=== PATIENT | male | born 1935 | race Caucasian/White ===

== ENCOUNTER 2016-08-01 13:03 | Observation (INO) | payer MEDICARE ==
[2016-08-01] MEDS ORDERED: MORPHINE SULFATE 4 MG/ML SYRINGE IV STA (14:17)
[2016-08-01] MEDS ORDERED: ASPIRIN 81 MG CHEW PO STA (14:17)
[2016-08-01] MEDS ORDERED: NITROGLYCERIN OINT 1 INCH/GM PACKET TOPICAL STA (14:17)
--- NOTE | 2016-08-01 14:20 | ED ---
General Adult HPI - General Chief complaint: Chest Pain Stated complaint: CHEST PAIN Time Seen by Provider: 08/01/16 14:04 Source: patient, family, RN notes reviewed Mode of arrival: ambulatory Limitations: no limitations - History of Present Illness Initial comments: Patient is a pleasant 81-year-old male presenting to the emergency department complaining of chest discomfort. Onset of symptoms was when he woke this morning. Patient has right lower chest discomfort. Discomfort is increased with deep breaths or no cough or fever. No shortness of breath except for the discomfort. No nausea or diaphoresis. No trauma. No history of similar symptoms previously. No leg pain or swelling. - Related Data Home Medications Medication Instructions Recorded Confirmed No Known Home Medications [No 08/01/16 08/01/16 Known Home Medications] Allergies Allergy/AdvReac Type Severity Reaction Status Date / Time No Known Allergies Allergy Verified 08/01/16 13:56 Review of Systems ROS Statement: Those systems with pertinent positive or pertinent negative responses have been documented in the HPI. ROS Other: All systems not noted in ROS Statement are negative. Constitutional: Denies: fever Eyes: Denies: eye pain ENT: Denies: ear pain Respiratory: Denies: cough Cardiovascular: Reports: chest pain (Right lower) Endocrine: Denies: fatigue Gastrointestinal: Denies: abdominal pain Genitourinary: Denies: dysuria Musculoskeletal: Denies: back pain Skin: Denies: rash Neurological: Denies: weakness Past Medical History Past Medical History: Diabetes Mellitus, Hearing Disorder / Deafness, Hyperlipidemia, Hypertension History of Any Multi-Drug Resistant Organisms: None Reported Additional Past Surgical History / Comment(s): carpal tunnel Past Psychological History: No Psychological Hx Reported Smoking Status: Former smoker Past Alcohol Use History: None Reported Past Drug Use History: None Reported General Exam Limitations: no limitations General appearance: alert, in no apparent distress Head exam: Present: atraumatic Eye exam: Present: normal appearance, PERRL ENT exam: Present: normal oropharynx Neck exam: Present: normal inspection Respiratory exam: Present: normal lung sounds bilaterally, chest wall tenderness (Right lower anterior) Cardiovascular Exam: Present: regular rate, normal rhythm Expanded Peripheral pulses: 2+: Radial (R), Radial (L), Posterior Tibialis (R), Posterior Tibialis (L) GI/Abdominal exam: Present: soft. Absent: tenderness Extremities exam: Present: normal inspection. Absent: pedal edema, calf tenderness Back exam: Present: normal inspection Neurological exam: Present: alert Psychiatric exam: Present: normal affect, normal mood Skin exam: Absent: rash Course Vital Signs 08/01/16 08/01/16 08/01/16 13:43 14:34 15:34 Temperature 97.9 F 98.0 F Pulse Rate 61 98 49 L Respiratory 18 18 18 Rate Blood Pressure 205/90 129/72 164/78 O2 Sat by Pulse 95 100 99 Oximetry 08/01/16 16:02 Temperature 97.4 F L Pulse Rate 55 L Respiratory 16 Rate Blood Pressure 184/79 O2 Sat by Pulse 99 Oximetry EKG Findings - EKG Comments: EKG Findings:: Normal sinus rhythm at 62. Normal intervals. Normal axis. Normal QRS. Normal ST-T. Medical Decision Making - Medical Decision Making Patient reevaluated and resting comfortably in bed. Patient family updated on results. Family is not comfortable with discharge and requests admission. Case discussed with Dr. Jones, who will admit for Dr. Baljeet Jimenez. Patient and family were also notified of nodules and need for follow-up with this. - Lab Data Result diagrams: 08/01/16 15:00 08/01/16 15:00 Lab Results 08/01/16 08/01/16 08/01/16 Range/Units 15:00 15:00 15:00 WBC 6.1 (3.8-10.6) k/uL RBC 4.14 L (4.30-5.90) m/uL Hgb 13.7 (13.0-17.5) gm/dL Hct 41.1 (39.0-53.0) % MCV 99.1 (80.0-100.0) fL MCH 33.0 (25.0-35.0) pg MCHC 33.3 (31.0-37.0) g/dL RDW 12.5 (11.5-15.5) % Plt Count 167 (150-450) k/uL Neutrophils % 64 % Lymphocytes % 22 % Monocytes % 7 % Eosinophils % 4 % Basophils % 1 % Neutrophils # 3.9 (1.3-7.7) k/uL Lymphocytes # 1.3 (1.0-4.8) k/uL Monocytes # 0.4 (0-1.0) k/uL Eosinophils # 0.3 (0-0.7) k/uL Basophils # 0.0 (0-0.2) k/uL PT (9.0-12.0) sec INR (<1.1) APTT (22.0-30.0) sec D-Dimer (<0.60) mg/L FEU Sodium 143 (137-145) mmol/L Potassium 4.7 (3.5-5.1) mmol/L Chloride 108 H (98-107) mmol/L Carbon Dioxide 24 (22-30) mmol/L Anion Gap 11 mmol/L BUN 26 H (9-20) mg/dL Creatinine 1.35 H (0.66-1.25) mg/dL Est GFR (MDRD) Af Amer >60 (>60 ml/min/1.73 sqM) Est GFR (MDRD) Non-Af 51 (>60 ml/min/1.73 sqM) Glucose 109 H (74-99) mg/dL Calcium 9.0 (8.4-10.2) mg/dL Magnesium 1.9 (1.6-2.3) mg/dL Total Bilirubin 0.5 (0.2-1.3) mg/dL AST 33 (17-59) U/L ALT 22 (21-72) U/L Alkaline Phosphatase 108 (38-126) U/L Total Creatine Kinase 79 (55-170) U/L CK-MB (CK-2) 1.5 (0.0-2.4) ng/mL CK-MB (CK-2) Rel Index 1.9 Troponin I <0.012 (0.000-0.034) ng/mL Total Protein 7.1 (6.3-8.2) g/dL Albumin 4.0 (3.5-5.0) g/dL 08/01/16 Range/Units 15:00 WBC (3.8-10.6) k/uL RBC (4.30-5.90) m/uL Hgb (13.0-17.5) gm/dL Hct (39.0-53.0) % MCV (80.0-100.0) fL MCH (25.0-35.0) pg MCHC (31.0-37.0) g/dL RDW (11.5-15.5) % Plt Count (150-450) k/uL Neutrophils % % Lymphocytes % % Monocytes % % Eosinophils % % Basophils % % Neutrophils # (1.3-7.7) k/uL Lymphocytes # (1.0-4.8) k/uL Monocytes # (0-1.0) k/uL Eosinophils # (0-0.7) k/uL Basophils # (0-0.2) k/uL PT 10.8 (9.0-12.0) sec INR 1.1 (<1.1) APTT 28.4 (22.0-30.0) sec D-Dimer 0.93 H (<0.60) mg/L FEU Sodium (137-145) mmol/L Potassium (3.5-5.1) mmol/L Chloride (98-107) mmol/L Carbon Dioxide (22-30) mmol/L Anion Gap mmol/L BUN (9-20) mg/dL Creatinine (0.66-1.25) mg/dL Est GFR (MDRD) Af Amer (>60 ml/min/1.73 sqM) Est GFR (MDRD) Non-Af (>60 ml/min/1.73 sqM) Glucose (74-99) mg/dL Calcium (8.4-10.2) mg/dL Magnesium (1.6-2.3) mg/dL Total Bilirubin (0.2-1.3) mg/dL AST (17-59) U/L ALT (21-72) U/L Alkaline Phosphatase (38-126) U/L Total Creatine Kinase (55-170) U/L CK-MB (CK-2) (0.0-2.4) ng/mL CK-MB (CK-2) Rel Index Troponin I (0.000-0.034) ng/mL Total Protein (6.3-8.2) g/dL Albumin (3.5-5.0) g/dL - Radiology Data Radiology results: report reviewed (Computed tomography scan of the chest shows nodules. Hazy groundglass opacity upper lobes bilateral.), image reviewed ( Chest x-ray shows questionable CHF.) Disposition Clinical Impression: Chest pain Disposition: ADMITTED IP TO THIS HOSP
--- NOTE | 2016-08-01 15:12 | XR ---
EXAMINATION TYPE: XR chest 2V DATE OF EXAM: 08/01/2016 3:06 PM COMPARISON: NONE TECHNIQUE: PA and lateral views submitted. HISTORY: Chest pain FINDINGS: The lungs are clear and there is no pneumothorax, pleural effusion, or focal pneumonia. Atheroscler otic change aorta. Arthropathy of the AC joints noted bilaterally. Hyperinflation suggests COPD. Dege nerative change of the spine. Right hilum superiorly has a convex margin could be correlated with CT scan exclude underlying mass o r adenopathy. IMPRESSION: 1. No acute infiltrate. There is mild prominence of the right hilum which has a convex upper margin. Correlate with CT scan as clinically warranted.
[2016-08-01 15:13] LABS: Basophils % (A) 1 %; CH 33.1; CHCM 33.5; Eosinophils # (A) 0.3 k/uL (0-0.7); Eosinophils % (A) 4 %; HCT 41.1 % (39.0-53.0); HDW 2.28; HGB 13.7 gm/dL (13.0-17.5); Luc % (Auto) 3; Lymphocytes # (A) 1.3 k/uL (1.0-4.8); Lymphocytes % (A) 22 %; MCHC 33.3 g/dL (31.0-37.0); MCV 99.1 fL (80.0-100.0); Mean Platelet Volume 7.4; Monocytes # (A) 0.4 k/uL (0-1.0); Monocytes % (A) 7 %; Neutrophils # (A) 3.9 k/uL (1.3-7.7); Neutrophils % (A) 64 %; RBC 4.14 m/uL (4.30-5.90); RDW 12.5 % (11.5-15.5); WBC 6.1 k/uL (3.8-10.6); WBC (Perox) 6.19
[2016-08-01 15:15] LABS: ALT 22 U/L (21-72); AST 33 U/L (17-59); Alkaline Phosphatase 108 U/L (38-126); Anion Gap 11 mmol/L; Blood Urea Nitrogen 26 mg/dL (9-20); Carbon Dioxide 24 mmol/L (22-30); Chloride 108 mmol/L (98-107); Glucose 109 mg/dL (74-99); Magnesium 1.9 mg/dL (1.6-2.3); Non-African American GFR(MDRD) 51 (>60 ml/min/1.73 sqM); Potassium 4.7 mmol/L (3.5-5.1); Sodium 143 mmol/L (137-145); Total Bilirubin 0.5 mg/dL (0.2-1.3); Total Protein 7.1 g/dL (6.3-8.2)
[2016-08-01 15:22] LABS: INR 1.1 (<1.1); Partial Thromboplastin Time 28.4 sec (22.0-30.0); Prothrombin Time 10.8 sec (9.0-12.0)
[2016-08-01] MEDS ORDERED: RX INFO: IV CONTRAST WAS GIVEN 1 EACH MISC MISCELLANE PRN (15:29)
[2016-08-01 15:32] LABS: Creatine Kinase 79 U/L (55-170)
[2016-08-01 15:45] LABS: Creatine Kinase MB 1.5 ng/mL (0.0-2.4); Troponin I <0.012 ng/mL (0.000-0.034)
--- NOTE | 2016-08-01 16:34 | CT ---
EXAMINATION TYPE: CT angio chest DATE OF EXAM: 08/01/2016 3:59 PM COMPARISON: NONE HISTORY: Mid Chest pain and Shortness of breath CT DLP: 217.2 mGycm Automated exposure control for dose reduction was used. CONTRAST: CTA scan of the thorax is performed with IV Contrast, patient injected with 80 mL of Visipaque 320, p ulmonary embolism protocol. . FINDINGS: There are emphysematous changes throughout the lungs. There is some hazy groundglass opacit y in the upper lobes bilaterally. There is an 8.6 mm nodule in the right middle lobe. Best seen on im age 75. There is a 5.7 mm nodule in the lateral basal segment of the right lower lobe best seen on im age 78. There is no significant axillary, mediastinal or hilar adenopathy. There is no evidence of pulmonary embolus. The aorta is normal in caliber. The heart is not enlarged. There is no pleural or pericardial fluid. There is colonic interposition present bilaterally. Visualized upper abdominal structures are unremar kable. There is mild hypertrophic spondylosis within the spine. IMPRESSION: 1. THIS EXAMINATION IS NEGATIVE FOR PULMONARY EMBOLUS. 2. EMPHYSEMATOUS CHANGE. 3. HAZY GROUNDGLASS OPACITY WITHIN THE UPPER LOBES BILATERALLY, MAY REPRESENT ONGOING ALVEOLITIS. 4. 2 SMALL PULMONARY NODULES ON THE RIGHT. FOLLOW UP [address] SCAN OF THE CHEST WOULD BE SUGGESTED .
[2016-08-01] MEDS ORDERED: NITROGLYCERIN SL TABS 0.4 MG TAB SUBLINGUAL PRN (17:18)
[2016-08-01] MEDS ORDERED: LISINOPRIL 20 MG TAB PO STA (17:57)
[2016-08-01 18:46] VITALS: RESP 18
[2016-08-01 21:47] LABS: Creatine Kinase 73 U/L (55-170)
[2016-08-01 22:00] LABS: Creatine Kinase MB 1.8 ng/mL (0.0-2.4); Troponin I <0.012 ng/mL (0.000-0.034)
[2016-08-01] MEDS: NITROGLYCERIN OINT 1 INCH/GM PACKET TOPICAL SCH (22:07)
[2016-08-02] MEDS: NITROGLYCERIN OINT 1 INCH/GM PACKET TOPICAL SCH ×2 (00:13→06:09)
[2016-08-02 04:14] LABS: Cholesterol 171 mg/dL (<200); HDL Cholesterol 51 mg/dL (40-60); Triglycerides 106 mg/dL (<150)
[2016-08-02 04:17] LABS: Creatine Kinase 58 U/L (55-170)
[2016-08-02 04:30] LABS: Creatine Kinase MB 1.2 ng/mL (0.0-2.4); Troponin I <0.012 ng/mL (0.000-0.034)
[2016-08-02] MEDS ORDERED: ASPIRIN 325 MG TAB PO SCH (09:00)
--- NOTE | 2016-08-02 10:01 | CONS ---
DATE OF CONSULTATION: Mr. Jules is an 81-year-old male who is followed at the [facility] in [place] who presented with a dizziness and right-sided discomfort. The history is obtained from him and his daughter. The patient is hard of hearing and has element of dementia. Apparently yesterday in the morning he felt dizzy and subsequently started to complain of right upper quadrant and right lower chest discomfort, came into the emergency room and subsequently admitted. He is pain free at the time of my evaluation. He is not very active physically. He has no significant dyspnea on exertion. He has no prior episode of dizziness, except for the last 2 weeks. He has no palpitation. No syncope. No PND, orthopnea. No peripheral edema. He had no left-sided chest discomfort. He has no prior documented history of cardiac disease or recent cardiac workup. His coronary risk factors are remarkable for the fact that he has stopped smoking many years ago. He used to have a history of diabetes, but then he lost weight. His lipid profile is not available to me and has no documented history of hypertension. His medications at home are none. REVIEW OF SYSTEMS: RESPIRATORY SYSTEM: He has no history of documented asthma or emphysema. He has no recent wheezing. GI SYSTEM: No recent GI bleed. No peptic ulcer disease. SYSTEM: No dysuria or hematuria. NERVOUS SYSTEM: No stroke or seizure. He has a of loss of memory. PHYSICAL EXAMINATION: He is an 81-year-old male, hard of hearing, was hypertensive on presentation. His blood pressure at this time is 130/70 with the heart rate in the high 50s. HEAD: Normocephalic. EYES: Sclerae anicteric. NECK: ( ) carotid upstroke. No bruit. LUNGS: Clear to auscultation. HEART: Regular rate and rhythm. S1, S2, no S3, with systolic murmur heard at the base. No diastolic murmur. No rub. ABDOMEN: Soft, right upper quadrant tenderness. No rebound. EXTREMITIES: No edema. Intact distal pulses. LAB DATA: He had an echocardiogram done in 2006 that showed no evidence of inducible ischemia. His EKG on this admission revealed sinus bradycardia, rate of 52 with rare PACs and nonspecific ST-T wave changes. His troponin is less than 0.012 for 3 samples. Cholesterol 171, LDL of 99, BUN and creatinine 26 and 1.35. Potassium 4.7. Hemoglobin of 13.7. He had a chest CT angiogram that showed no evidence of pulmonary embolism. He has emphysematous changes with hazy ground-glass opacity could be related to the alveolitis. IMPRESSION: 1. Right-sided chest discomfort, atypical for ischemic heart disease. No evidence to suggest cardiac abnormality. 2. Abnormal CT scan, etiology unclear. 3. Remote history of smoking. 4. Abnormal renal function tests of unknown duration. RECOMMENDATIONS: From the cardiac standpoint, I will obtain echocardiogram with Doppler. If there is no evidence of significant abnormality then no further cardiac workup will be needed at this point. Thank you for this consult. Will follow with you.
[2016-08-02 12:49] LABS: Hemoglobin A1C 6.3 % (4.2-6.1)
[2016-08-02 16:23] VITALS: BP 139/66; PULSE 54; TEMP 97.5
--- NOTE | 2016-08-02 17:26 | P.HPIM ---
History of Present Illness H&P Date: 08/02/16 (DC summary as well) 81-year-old gentleman comes in the hospital with right-sided chest pain 6 days. Patient stated that the pain is intermittent denies having any alleviating or exacerbating factors. Patient apparently had a history of diabetes however lost weight and does not require any medications anymore. Patient does not take any medications at home. Right-sided chest pain was intermittent in nature radiating to the right arm. In the emergency room EKG revealed a right bundle branch block without no ST-T wave changes. Cardiac enzymes 3 were negative. Patient states that his pain is relieved at the time of my evaluation. Patient denies having any difficulty breathing, chest pain, nausea, vomiting, diarrhea at that time. Incidentally CT angiogram did note some non specific changes. Patient does not have any additional symptoms at this time. Review of Systems All systems: negative (Decreased hearing another's described in HPI.) Past Medical History Past Medical History: Diabetes Mellitus, Hearing Disorder / Deafness, Hyperlipidemia, Hypertension, Memory Impairment Additional Past Medical History / Comment(s): ruptured tendons rt ring and pinky fingers(has sx), peptic ulcer 2011, "in past made mention of ra", "dizzy spells and headaches" History of Any Multi-Drug Resistant Organisms: None Reported Past Surgical History: Tonsillectomy Additional Past Surgical History / Comment(s): carpal tunnel, rt hand ring and pinky fingers tendon repair, margarito cataracts,colonoscopy, hernia repair, skin graft lt leg d/t industrial accident. Past Psychological History: No Psychological Hx Reported Additional Psychological History / Comment(s): pt's 4 years ago. pt lives with daughter yogi in home that has 4 steps into home. uses a cane or walker as needed. has 1 pet bird. Pt served in the [employer] in the past. 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 Smoking Status: Former smoker Past Alcohol Use History: None Reported Past Drug Use History: None Reported - Past Family History Father Family Medical History: Cancer Additional Family Medical History / Comment(s): colon cancer Brother(s) Family Medical History: Cancer Additional Family Medical History / Comment(s): colon cancer Mother Family Medical History: Asthma Medications and Allergies Allergies Allergy/AdvReac Type Severity Reaction Status Date / Time No Known Allergies Allergy Verified 08/01/16 13:56 Physical Exam Vitals: Vital Signs Temp Pulse Pulse Pulse Resp BP BP 08/02/16 16:00 97.5 F L 54 L 18 139/66 08/02/16 11:50 97.7 F 45 L 18 133/61 08/02/16 08:00 58 L 08/02/16 07:54 97.6 F 56 L 18 131/77 08/02/16 04:00 42 L 18 08/02/16 03:52 97.9 F 52 L 18 93/56 08/01/16 23:50 58 L 18 120/61 08/01/16 23:14 52 L 18 08/01/16 20:42 18 08/01/16 19:49 97.9 F 52 L 18 161/75 08/01/16 18:45 98.2 F 50 L 18 166/56 08/01/16 18:02 98.0 F 50 L 16 190/84 Pulse Ox 08/02/16 16:00 94 L 08/02/16 11:50 95 08/02/16 08:00 08/02/16 07:54 95 08/02/16 04:00 08/02/16 03:52 94 L 08/01/16 23:50 92 L 08/01/16 23:14 08/01/16 20:42 08/01/16 19:49 96 08/01/16 18:45 98 08/01/16 18:02 99 Intake and Output 08/02/16 08/02/16 08/02/16 06:59 14:59 22:59 Intake Total 240 Balance 240 Intake: Oral 240 Other: # Voids 1 Physical exam Gen. appearance oriented 3 in no distress Neck is supple no JVD Lungs good air entry clear to auscultation no rhonchi or wheezing Heart S1-S2 heard regular rate and rhythm no murmurs appreciated Abdomen is soft nontender no organomegaly bowel sounds are intact Neurologically cranial nerves II-12 grossly intact no focal motor or sensory deficits noted Skin no abnormalities appreciated Results CBC & Chem 7: 08/01/16 15:00 08/01/16 15:00 Labs: Abnormal Lab Results - Last 24 Hours (Table) 08/02/16 Range/Units 03:18 Hemoglobin A1c 6.3 H (4.2-6.1) % Assessment and Plan Plan: #1 right-sided chest pain atypical in nature likely musculoskeletal #2 nonspecific findings on the CT angiogram however does not have symptoms clinical observation. #3 pulmonary nodules #4 history of diabetes #5 hearing loss. #6 history of hypertension. Plan Patient was admitted for chest pain is likely muscular skeletal he was self- limiting patient will be discharged home without any additional change in medications. Patient is to follow-up with primary care physician closely. Patient underwent a CT angiogram no PE was found, echocardiogram was done to rule out wall motion abdomen is. Cardiac enzymes 3 were negative. If patient continues to have chest pain may benefit from receiving an outpatient Lexiscan.
--- NOTE | 2016-08-02 17:37 | ECHOF ---
Referral Reason:cp MEASUREMENTS -------- HEIGHT: 165.1 cm WEIGHT: 68.0 kg BP: RVIDd: 2.4 cm (< 3.3) IVSd: 0.9 cm (0.6 - 1.1) LVIDd: 3.7 cm (3.9 - 5.3) LVPWd: 1.3 cm (0.6 - 1.1) IVSs: 1.3 cm LVIDs: 3.1 cm LVPWs: 1.4 cm LA Diam: 2.9 cm (2.7 - 3.8) LAESV Index (A-L): 14.67 ml/m Ao Diam: 3.3 cm (2.0 - 3.7) AV Cusp: 2.1 cm (1.5 - 2.6) LA Diam: 2.5 cm (2.7 - 3.8) MV EXCURSION: 16.356 mm (> 18.000) MV EF SLOPE: 81 mm/s (70 - 150) EPSS: 0.6 cm MV E Kali: 0.55 m/s MV DecT: 247 ms MV A Kali: 0.85 m/s MV E/A Ratio: 0.65 RAP: 5.00 mmHg RVSP: 15.45 mmHg FINDINGS -------- Sinus rhythm. This was a technically adequate study. LV size, wall thickness and systolic function are normal, with an EF greater than 55%. The right ventricle is normal in size. Normal LA size by volume 22+/-6 ml/m2. The right atrial size is normal. There is mild aortic valve sclerosis. There is no evidence of aortic regurgitation. Mild mitral annular calcification present. Mild mitral regurgitation is present. Mild tricuspid regurgitation present. There is no evidence of pulmonary hypertension. The right ventricular systolic pressure, as measured by Doppler, is 15.45mmHg. There is no pulmonic regurgitation present. The aortic root size is normal. There is no pericardial effusion. CONCLUSIONS -------- 1. Sinus rhythm. 2. The right ventricular systolic pressure, as measured by Doppler, is 15.45mmHg. 3. There is no pulmonic regurgitation present. 4. There is no pericardial effusion. 5. This was a technically adequate study. 6. LV size, wall thickness and systolic function are normal, with an EF greater than 55%. 7. Normal LA size by volume 22+/-6 ml/m2. 8. There is mild aortic valve sclerosis. 9. Mild mitral annular calcification present. 10. Mild mitral regurgitation is present. 11. Mild tricuspid regurgitation present. 12. There is no evidence of pulmonary hypertension. PIPE LINE REPAIRER: Ruth Bonilla RDCS
== END 2016-08-02 18:15 | disposition home or self-care (01) ==
LOC: EC 13:03 → 3OBS 17:19
PROVIDERS: ADMIT Internal Medicine; ATTEND Internal Medicine
DX: R07.89 Other chest pain (principal); R91.8 Other nonspecific abnormal finding of lung field; Z87.891 Personal history of nicotine dependence; R94.4 Abnormal results of kidney function studies; I45.10 Unspecified right bundle-branch block; E11.9 Type 2 diabetes mellitus without complications; H91.90 Unspecified hearing loss, unspecified ear; I10 Essential (primary) hypertension; R42 Dizziness and giddiness
CPT/HCPCS: 99291 ×2; 96374 ×2; 93005; 93306; 85379; 80061; 36415; 80053; 83036; 82550 ×2; 82553 ×2; 83735; 84484 ×2; 85025; 85610; 85730; 71020; 71275; G0378 ×2; J2270; Q9967

== ENCOUNTER 2016-08-24 21:19 | Emergency (ER) | payer MEDICARE ==
[2016-08-24 21:39] VITALS: RESP 18
[2016-08-24] MEDS ORDERED: SODIUM CHLORIDE 0.9% 500 ML IV STA (21:43)
[2016-08-24] MEDS ORDERED: ONDANSETRON 4 MG/2 ML VIAL IVP STA (21:43)
--- NOTE | 2016-08-24 21:45 | ED ---
General Adult HPI - General Chief complaint: Abdominal Pain Stated complaint: vomiting Time Seen by Provider: 08/24/16 21:35 Source: patient, family, RN notes reviewed Mode of arrival: ambulatory Limitations: no limitations - History of Present Illness Initial comments: This is an 81-year-old male who presents emergency Department stating that he started vomiting yesterday. Patient complains of diffuse abdominal pain. Patient states he was vomiting intermittently today as well. yesterday also was the first day he started Aricept. Patient denies any chest pain palpitations or difficulty breathing patient denies any shortness of breath per patient denies any recent fever chills or cough. Patient denies any diarrhea. Patient denies headache patient denies numbness weakness. Patient has had lightheadedness dizziness or near syncopal episode. - Related Data Home Medications Medication Instructions Recorded Confirmed Donepezil [Aricept] 10 mg PO DAILY 08/24/16 08/24/16 Levothyroxine Sodium [Synthroid] 25 mcg PO DAILY 08/24/16 08/24/16 Lisinopril [Prinivil] 10 mg PO DAILY 08/24/16 08/24/16 Previous Rx's Medication Instructions Recorded Aspirin 325 mg PO DAILY tab 08/02/16 Allergies Allergy/AdvReac Type Severity Reaction Status Date / Time No Known Allergies Allergy Verified 08/24/16 22:03 Review of Systems ROS Statement: Those systems with pertinent positive or pertinent negative responses have been documented in the HPI. ROS Other: All systems not noted in ROS Statement are negative. Past Medical History Past Medical History: Diabetes Mellitus, Hearing Disorder / Deafness, Hyperlipidemia, Hypertension, Memory Impairment Additional Past Medical History / Comment(s): ruptured tendons rt ring and pinky fingers(has sx), peptic ulcer 2011, "in past made mention of ra", "dizzy spells and headaches" History of Any Multi-Drug Resistant Organisms: None Reported Past Surgical History: Tonsillectomy Additional Past Surgical History / Comment(s): carpal tunnel, rt hand ring and pinky fingers tendon repair, margarito cataracts,colonoscopy, hernia repair, skin graft lt leg d/t industrial accident. Past Psychological History: No Psychological Hx Reported Additional Psychological History / Comment(s): pt's 4 years ago. pt lives with daughter yogi in home that has 4 steps into home. uses a cane or walker as needed. has 1 pet bird. Pt served in the [employer] in the past. held factory jobs and prison jobs. Smoking Status: Former smoker Past Alcohol Use History: None Reported Past Drug Use History: None Reported - Past Family History Father Family Medical History: Cancer Additional Family Medical History / Comment(s): colon cancer Brother(s) Family Medical History: Cancer Additional Family Medical History / Comment(s): colon cancer Mother Family Medical History: Asthma General Exam - General Exam Comments Initial Comments: GENERAL: Patient is well-developed and well-nourished. Patient is nontoxic and well- hydrated and is in mild distress. Patient is very hard of hearing ENT: Neck is soft and supple. No significant lymphadenopathy is noted. Oropharynx is clear. Moist mucous membranes. Neck has full range of motion without eliciting any pain. EYES: The sclera were anicteric and conjunctiva were pink and moist. Extraocular movements were intact and pupils were equal round and reactive to light. Eyelids were unremarkable. PULMONARY: Unlabored respirations. Good breath sounds bilaterally. No audible rales rhonchi or wheezing was noted. CARDIOVASCULAR: There is a regular rate and rhythm without any murmurs gallops or rubs. Femoral pulses are equal bilaterally ABDOMEN: Patient has diffuse abdominal pain SKIN: Skin is clear with no lesions or rashes and otherwise unremarkable. NEUROLOGIC: Patient is alert and oriented x3. Cranial nerves II through XII are grossly intact. Motor and sensory are also intact. Normal speech, volume and content. Symmetrical smile. MUSCULOSKELETAL: Normal extremities with adequate strength and full range of motion. No lower extremity swelling or edema. No calf tenderness. LYMPHATICS: No significant lymphadenopathy is noted PSYCHIATRIC: Normal psychiatric evaluation. Limitations: no limitations Course Vital Signs 08/24/16 08/24/16 21:33 23:17 Temperature 97.4 F L Pulse Rate 64 52 L Respiratory 18 18 Rate Blood Pressure 169/94 169/94 O2 Sat by Pulse 93 L 96 Oximetry Medical Decision Making - Medical Decision Making EKG shows sinus bradycardia with occasional PVC at a rate of 57 bpm ID interval 166 QRS is 78 QT interval 392 QTC is 381. Patient's EKG shows no ST segment elevation or depression or T wave abnormalities are noted. I went back in the room to reevaluate the patient he was no longer having any abdominal pain on palpation he was no longer tender. Computed tomography scan showed no acute abnormality. Patient lives with his daughter and the daughter understands that if the patient has anymore symptoms to bring him right back to the hospital. - Lab Data Result diagrams: 08/24/16 21:56 08/24/16 21:56 Lab Results 08/24/16 08/24/16 08/24/16 Range/Units 21:56 21:56 21:56 WBC 7.3 (3.8-10.6) k/uL RBC 4.18 L (4.30-5.90) m/uL Hgb 13.8 (13.0-17.5) gm/dL Hct 42.2 (39.0-53.0) % MCV 101.1 H (80.0-100.0) fL MCH 33.0 (25.0-35.0) pg MCHC 32.6 (31.0-37.0) g/dL RDW 13.0 (11.5-15.5) % Plt Count 186 (150-450) k/uL Neutrophils % 72 % Lymphocytes % 18 % Monocytes % 6 % Eosinophils % 2 % Basophils % 1 % Neutrophils # 5.2 (1.3-7.7) k/uL Lymphocytes # 1.3 (1.0-4.8) k/uL Monocytes # 0.4 (0-1.0) k/uL Eosinophils # 0.2 (0-0.7) k/uL Basophils # 0.0 (0-0.2) k/uL Sodium 142 (137-145) mmol/L Potassium 4.5 (3.5-5.1) mmol/L Chloride 109 H (98-107) mmol/L Carbon Dioxide 25 (22-30) mmol/L Anion Gap 8 mmol/L BUN 25 H (9-20) mg/dL Creatinine 1.40 H (0.66-1.25) mg/dL Est GFR (MDRD) Af Amer 59 (>60 ml/min/1.73 sqM) Est GFR (MDRD) Non-Af 49 (>60 ml/min/1.73 sqM) Glucose 176 H (74-99) mg/dL Plasma Lactic Acid Danis 1.7 (0.7-2.0) mmol/L Calcium 9.5 (8.4-10.2) mg/dL Total Bilirubin 0.4 (0.2-1.3) mg/dL AST 28 (17-59) U/L ALT 28 (21-72) U/L Alkaline Phosphatase 115 (38-126) U/L Troponin I (0.000-0.034) ng/mL Total Protein 6.9 (6.3-8.2) g/dL Albumin 4.0 (3.5-5.0) g/dL Amylase 93 (30-110) U/L Lipase 374 H (23-300) U/L Urine Color Urine Appearance (Clear) Urine pH (5.0-8.0) Ur Specific [place] (1.001-1.035) Urine Protein (Negative) Urine Glucose (UA) (Negative) Urine Ketones (Negative) Urine Blood (Negative) Urine Nitrite (Negative) Urine Bilirubin (Negative) Urine Urobilinogen (<2.0) mg/dL Ur Leukocyte Esterase (Negative) Urine RBC (0-5) /hpf Urine WBC (0-5) /hpf Ur Squamous Epith Cells (0-4) /hpf Amorphous Sediment (None) /hpf Hyaline Casts (0-2) /lpf 08/24/16 08/24/16 Range/Units 21:56 22:16 WBC (3.8-10.6) k/uL RBC (4.30-5.90) m/uL Hgb (13.0-17.5) gm/dL Hct (39.0-53.0) % MCV (80.0-100.0) fL MCH (25.0-35.0) pg MCHC (31.0-37.0) g/dL RDW (11.5-15.5) % Plt Count (150-450) k/uL Neutrophils % % Lymphocytes % % Monocytes % % Eosinophils % % Basophils % % Neutrophils # (1.3-7.7) k/uL Lymphocytes # (1.0-4.8) k/uL Monocytes # (0-1.0) k/uL Eosinophils # (0-0.7) k/uL Basophils # (0-0.2) k/uL Sodium (137-145) mmol/L Potassium (3.5-5.1) mmol/L Chloride (98-107) mmol/L Carbon Dioxide (22-30) mmol/L Anion Gap mmol/L BUN (9-20) mg/dL Creatinine (0.66-1.25) mg/dL Est GFR (MDRD) Af Amer (>60 ml/min/1.73 sqM) Est GFR (MDRD) Non-Af (>60 ml/min/1.73 sqM) Glucose (74-99) mg/dL Plasma Lactic Acid Danis (0.7-2.0) mmol/L Calcium (8.4-10.2) mg/dL Total Bilirubin (0.2-1.3) mg/dL AST (17-59) U/L ALT (21-72) U/L Alkaline Phosphatase (38-126) U/L Troponin I <0.012 (0.000-0.034) ng/mL Total Protein (6.3-8.2) g/dL Albumin (3.5-5.0) g/dL Amylase (30-110) U/L Lipase (23-300) U/L Urine Color Yellow Urine Appearance Clear (Clear) Urine pH 5.5 (5.0-8.0) Ur Specific [place] 1.014 (1.001-1.035) Urine Protein 1+ H (Negative) Urine Glucose (UA) Negative (Negative) Urine Ketones Negative (Negative) Urine Blood Trace H (Negative) Urine Nitrite Negative (Negative) Urine Bilirubin Negative (Negative) Urine Urobilinogen <2.0 (<2.0) mg/dL Ur Leukocyte Esterase Negative (Negative) Urine RBC 2 (0-5) /hpf Urine WBC 1 (0-5) /hpf Ur Squamous Epith Cells 1 (0-4) /hpf Amorphous Sediment Rare H (None) /hpf Hyaline Casts 1 (0-2) /lpf Disposition Clinical Impression: Abdominal pain, Acute vomiting Disposition: HOME SELF-CARE Instructions: Abdominal Pain (ED) Referrals: James Richard DO [Primary Care Provider] - 1-2 days Time of Disposition: 00:00
[2016-08-24 22:19] LABS: Basophils % (A) 1 %; CH 33.6; CHCM 33.4; Eosinophils # (A) 0.2 k/uL (0-0.7); Eosinophils % (A) 2 %; HCT 42.2 % (39.0-53.0); HDW 2.26; HGB 13.8 gm/dL (13.0-17.5); Luc # (Auto) 0.12; Luc % (Auto) 2; Lymphocytes # (A) 1.3 k/uL (1.0-4.8); Lymphocytes % (A) 18 %; MCHC 32.6 g/dL (31.0-37.0); MCV 101.1 fL (80.0-100.0); Mean Platelet Volume 7.6; Monocytes # (A) 0.4 k/uL (0-1.0); Monocytes % (A) 6 %; Neutrophils # (A) 5.2 k/uL (1.3-7.7); Neutrophils % (A) 72 %; RBC 4.18 m/uL (4.30-5.90); WBC 7.3 k/uL (3.8-10.6); WBC (Perox) 7.73
[2016-08-24 22:31] LABS: Calcium 9.5 mg/dL (8.4-10.2); Potassium 4.5 mmol/L (3.5-5.1); Total Bilirubin 0.4 mg/dL (0.2-1.3); Total Protein 6.9 g/dL (6.3-8.2)
[2016-08-24 22:32] LABS: Amorphous Sediment,Urine Rare /hpf; Appearance,Urine Clear (Clear); Bilirubin,Urine Negative (Negative); Glucose,Urine (UA) Negative (Negative); Ketones,Urine Negative (Negative); Leukocyte Esterase,Urine Negative (Negative); Nitrite,Urine Negative (Negative); PH, Urine 5.5 (5.0-8.0); Particle Count 482; Protein,Urine 1+ (Negative); RBC,Urine 2 /hpf (0-5); Specific Gravity,Urine 1.014 (1.001-1.035); Squamous Epithelial Cell,Urine 1 /hpf (0-4); UA Billing (MACRO vs. MICRO) MICRO; Urobilinogen,Urine <2.0 mg/dL (<2.0); WBC,Urine 1 /hpf (0-5)
--- NOTE | 2016-08-24 22:35 | XR ---
EXAM: XR Abdomen, 1 View. Upright CLINICAL HISTORY: Reason: abdominal pain TECHNIQUE: Frontal upright view of the abdomen/pelvis. COMPARISON: No relevant prior studies available. FINDINGS: Intraperitoneal space: Bowel gas pattern is unremarkable. No evidence of bowel obstruction or pneumoperitoneum. Gastrointestinal tract: No evidence of bowel obstruction Organs: No radiopaque renal calculi. No abnormal calcifications identified. Bones/joints: Degenerative changes involve the lower lumbar spine. IMPRESSION: No radiographic evidence of acute abdominal disease or bowel obstruction.
[2016-08-24] MEDS ORDERED: RX INFO: IV CONTRAST WAS GIVEN 1 EACH MISC MISCELLANE PRN (22:43)
--- NOTE | 2016-08-24 23:49 | CT ---
EXAM: CT Abdomen and Pelvis With Intravenous Contrast. CLINICAL HISTORY: Reason: Pain TECHNIQUE: Axial computed tomography images of the abdomen and pelvis with intravenous contrast. CTDI is 13.5 mGy and DLP is 513.4 mGy-cm This CT exam was performed using one or more of the following dose reduction techniques: automated exposure control, adjustment of the mA and/or kV according to patient size, and/or use of iterative reconstruction technique. COMPARISON: Abdominal radiograph 08/24/2016 FINDINGS: Lower thorax: Imaged lung bases are clear. Liver is of normal size without focal hepatic abnormalities. ABDOMEN: Liver: Unremarkable. No mass. Gallbladder and bile ducts: No radiopaque gallstones or pericholecystic inflammatory changes. No evidence of biliary dilatation. Pancreas: Pancreas is unremarkable. No ductal dilation. Spleen: Spleen is unremarkable. Adrenals: No adrenal masses Kidneys and ureters: Kidneys are unremarkable bilaterally. No evidence of renal calculi or hydronephrosis. No focal renal abnormalities identified. Stomach and bowel: No evidence of bowel obstruction. No evidence of appendicitis. Colonic diverticulosis without evidence of diverticulitis. Appendix: See above. PELVIS: Bladder: Unremarkable. No mass. Reproductive: Unremarkable as visualized. ABDOMEN and PELVIS: Intraperitoneal space: No abnormal masses or fluid collections identified. No free air. Bones/joints: Lumbar spondylosis. No acute bony abnormalities identified. Soft tissues: Unremarkable. Vasculature: Aortic-iliac atherosclerotic disease. No evidence of abdominal aortic aneurysm. Lymph nodes: Mildly enlarged periaortic, left common iliac and left external iliac lymphadenopathy. IMPRESSION: Mild retroperitoneal and pelvic lymphadenopathy which is of uncertain etiology. Clinical correlation is recommended. Colonic diverticulosis. No evidence of acute abdominal-pelvic disease.
[2016-08-25] MEDS ORDERED: ONDANSETRON 4 MG ODT STARTER PACK 2 TAB BTL PO STA (00:01)
[2016-08-25 00:10] VITALS: BP 163/90; PULSE 53; TEMP 97
== END 2016-08-25 00:12 | disposition home or self-care (01) ==
LOC: EC 21:19
DX: R10.84 Generalized abdominal pain (principal); R11.10 Vomiting, unspecified; I10 Essential (primary) hypertension; I49.3 Ventricular premature depolarization; Z87.891 Personal history of nicotine dependence; Z79.899 Other long term (current) drug therapy
CPT/HCPCS: 99285; 96374; 96361; 51798; 36415; 93005; 80053; 82150; 83605; 83690; 84484; 85025; 81001; 74000; 74177; Q9967; J2405; S0119

== ENCOUNTER → 2016-10-09 | Outpatient (CLI) | payer OTHER ==
--- NOTE | 2016-10-09 08:36 | US ---
EXAMINATION TYPE: US abdomen complete DATE OF EXAM: 10/09/2016 COMPARISON: CT abdomen and pelvis August 24, 2016 CLINICAL HISTORY: Abdominal Pain R10.9. EXAM MEASUREMENTS: Liver Length: 13.5 cm Gallbladder Wall: 0.3 cm CBD: 0.3 cm Spleen: 8.7 cm Right Kidney: 9.0 x 3.5 x 3.6 cm Left Kidney: 8.9 x 4.7 x 4.0 cm Pancreas: visualized portions appear wnl, tail obscured by overlying bowel Liver: appears wnl Gallbladder: no evidence of shadowing mobile stones Evidence for sonographic Muñoz's sign: no CBD: wnl Spleen: wnl Right Kidney: no evidence of hydronephrosis or mass Left Kidney: fullness to renal pelvis Upper IVC: wnl Abd Aorta: portions obscured by overlying bowel, calcifications noted The visualized liver is homogenous. The intrahepatic portion of the IVC and proximal abdominal aorta are within normal limits. There is no evidence of cholelithiasis. Common bile duct is unremarkable . The visualized portions of the pancreas are homogenous. The spleen is unremarkable. Some fullness to left renal pelvis without calyceal dilatation is identified. Findings are consistent with extrare nal pelvis. No renal lesions are seen. IMPRESSION: No significant finding is seen to account for patient's symptoms.
== END | disposition home or self-care (01) ==
LOC: RADUSWWP 07:16
PROVIDERS: ATTEND Family Medicine
DX: R10.9 Unspecified abdominal pain (principal)
CPT/HCPCS: 76700

== ENCOUNTER → 2016-12-25 | Outpatient (CLI) | payer OTHER ==
--- NOTE | 2016-12-25 18:21 | CT ---
EXAMINATION TYPE: CT chest wo con DATE OF EXAM: 12/25/2016 COMPARISON: 08/01/2016 HISTORY: LUNG NODULES. CT DLP: 230.[address] of the chest was performed with lung and mediastinal window settings submitted. The la ck of contrast limits evaluation of the vascular, mediastinal and parenchymal structures including th e upper abdomen. LUNGS: Moderate emphysematous changes are seen. Overall improvement in previously noted scattered beverly undglass infiltrates. Postinflammatory change in the right upper lobe anteriorly. Previously noted ri ght middle lobe nodule is smaller in size and measures 5 mm. 3 mm pulmonary nodule right lateral lung base. No additional nodules identified. MEDIASTINUM/NICOLE: Thoracic aorta is of normal caliber with limited evaluation given lack of contrast . Atheromatous changes seen. Coronary artery calcifications identified. The heart is not enlarged. N o evidence for mediastinal mass. No lymph nodes greater than 1cm. UPPER ABDOMEN: No significant abnormality is seen. OTHER: No significant other abnormality. IMPRESSION: 1. Proved aeration throughout the lungs with resolution previously noted groundglass infiltrates. 2. Essentially stable pulmonary nodularity. 3. Postinflammatory change right upper lobe. 4. Emphysematous changes.
== END | disposition home or self-care (01) ==
LOC: RADCTMAIN 16:40
PROVIDERS: ATTEND Family Medicine
DX: R91.8 Other nonspecific abnormal finding of lung field (principal); J43.9 Emphysema, unspecified
CPT/HCPCS: 71250

== ENCOUNTER → 2017-01-15 | Outpatient (CLI) | payer OTHER ==
--- NOTE | 2017-01-15 09:05 | US ---
EXAMINATION TYPE: US abdomen complete DATE OF EXAM: 01/15/2017 COMPARISON: CT abdomen and pelvis August 24, 2016. Complete abdominal ultrasound October 09, 2016 CLINICAL HISTORY: R10.11 RUQ PAIN. RLQ pain EXAM MEASUREMENTS: Liver Length: 13.8 cm Gallbladder Wall: 0.2 cm CBD: 0.4 cm Spleen: 8.4 cm Right Kidney: 9.2 x 3.9 x 3.6 cm Left Kidney: 8.6 x 4.3 x 3.4 cm Pancreas: visualized portions appear wnl, tail obscured by overlying bowel Liver: appears wnl Gallbladder: no evidence of stones Evidence for sonographic Muñoz's sign: no CBD: appears wnl Spleen: wnl Right Kidney: no evidence of hydronephrosis or mass Left Kidney: fullness to renal pelvis Upper IVC: wnl Abd Aorta: portions obscured by overlying bowel The visualized liver is homogenous. The intrahepatic portion of the IVC and proximal abdominal aorta are within normal limits. There is no evidence of cholelithiasis. Common bile duct is unremarkable . The visualized portions of the pancreas are homogenous. The spleen is unremarkable. Kidneys are symmetric and free of new hydronephrosis. Left-sided extrarenal pelvis is redemonstrated. No renal le sions are seen on images saved. IMPRESSION: No significant new or acute finding is seen to account for patient's symptoms.
== END | disposition home or self-care (01) ==
LOC: RADUSWWP 08:25
PROVIDERS: ATTEND Internal Medicine Gastroenterology
DX: R10.11 Right upper quadrant pain (principal)
CPT/HCPCS: 76700

== ENCOUNTER → 2017-03-30 | Outpatient (CLI) | payer MEDICARE ==
--- NOTE | 2017-03-30 13:23 | CT ---
EXAMINATION TYPE: CT abdomen pelvis wo con DATE OF EXAM: 03/30/2017 COMPARISON: 08/24/2016 INDICATION: Generalized abdominal pain DLP: 380 mGycm, Automated exposure control for dose reduction was used. CONTRAST: 0 mL of Omnipaque 350. Study performed with Oral Contrast TECHNIQUE: Axial images were obtained from above the diaphragm to the pubic rami in the axial plane a t 5 mm thick sections. Reconstructed images are reviewed on the computer in the coronal plane. FINDINGS: Limited CT sections are obtained the lung bases. The lung bases are clear. CT ABDOMEN: Liver: Normal Spleen: Normal Pancreas: Normal Adrenal glands: The adrenal glands are normal. Gallbladder: Normal Kidneys: No masses are evident. No hydronephrosis is present. No cysts are present. No renal stone s are identified. Aorta: Vascular calcification is within the aorta. Inferior vena cava: Normal. CT PELVIS: Periaortic adenopathy is present some of which is prominent measuring up to 1.3 cm in size . Some left iliac chain adenopathy is prominent at 1.0 cm. Loops of bowel within the abdomen and pelvis are normal. There are redundant sigmoid colon loops containing multiple diverticuli. No acute diverticulitis is evident. Appendix: Normal as visualized. Urinary bladder: Normal. Genitourinary structures: Prostate is unremarkable. Osseous structures: No suspicious lytic or sclerotic lesions. Facet hypertrophy is present, likely ca using some canal narrowing at the L4-5 level. IMPRESSIONS: 1. Slight increase and prominent periaortic and left iliac chain lymphadenopathy some of which is enl arged by CT criteria. 2. Sigmoid diverticulosis
== END | disposition home or self-care (01) ==
LOC: RADCTMAIN 06:47
DX: K57.30 Diverticulosis of large intestine without perforation or abscess without bleeding (principal); R59.0 Localized enlarged lymph nodes
CPT/HCPCS: 36415; 74176; 82565; 84520

== ENCOUNTER 2017-06-13 09:21 | Emergency (ER) | payer MEDICARE ==
--- NOTE | 2017-06-13 09:50 | ED ---
Abdominal Pain HPI - General Chief Complaint: Abdominal Pain Stated Complaint: No appetite Time Seen by Provider: 06/13/17 09:33 Source: patient, RN notes reviewed Mode of arrival: ambulatory Limitations: no limitations - History of Present Illness Initial Comments: This is an 82-year-old male who presents to the ED with a chief complaint of abdominal pain and upper respiratory infection which both began approximately 2 weeks ago. The patient has dementia and is unable to hear, so the history was obtained from his son. He has had a decrease in appetite and gradually shifted to only eating small portions of soft foods, like mashed potatoes. His son states this is unusual for him to not eat his steak, which is his favorite food. His son denies any increased pain after meals, and is unsure when his last bowel movement was and whether it was formed or loose. He has a history of gallbladder problems, which the patient's son believes were gallstones, and he still has his gallbladder. Additionally, the patient holds onto his right upper quadrant when coughing and appears to be in pain. His pain is worse in the morning and at night. His cough is productive and has been increasing in severity over the last 2 weeks. He denies any significant weight loss, fevers, or chills. - Related Data Home Medications Medication Instructions Recorded Confirmed Donepezil [Aricept] 10 mg PO DAILY 08/24/16 06/13/17 Levothyroxine Sodium [Synthroid] 25 mcg PO DAILY 08/24/16 06/13/17 Lisinopril [Prinivil] 10 mg PO DAILY 08/24/16 06/13/17 Previous Rx's Medication Instructions Recorded Levofloxacin [Levaquin] 500 mg PO DAILY #7 tab 06/13/17 Allergies Allergy/AdvReac Type Severity Reaction Status Date / Time No Known Allergies Allergy Verified 06/13/17 11:34 Review of Systems ROS Statement: Those systems with pertinent positive or pertinent negative responses have been documented in the HPI. ROS Other: All systems not noted in ROS Statement are negative. Past Medical History Past Medical History: Diabetes Mellitus, Hearing Disorder / Deafness, Hyperlipidemia, Hypertension, Memory Impairment Additional Past Medical History / Comment(s): ruptured tendons rt ring and pinky fingers(has sx), peptic ulcer 2011, "in past made mention of ra", "dizzy spells and headaches" History of Any Multi-Drug Resistant Organisms: None Reported Past Surgical History: Tonsillectomy Additional Past Surgical History / Comment(s): carpal tunnel, rt hand ring and pinky fingers tendon repair, margarito cataracts,colonoscopy, hernia repair, skin graft lt leg d/t industrial accident. Past Psychological History: No Psychological Hx Reported Smoking Status: Former smoker Past Alcohol Use History: None Reported Past Drug Use History: None Reported - Past Family History Father Family Medical History: Cancer Additional Family Medical History / Comment(s): colon cancer Brother(s) Family Medical History: Cancer Additional Family Medical History / Comment(s): colon cancer Mother Family Medical History: Asthma General Exam Limitations: language barrier, altered mental status (The patient has hearing loss, dementia, and is unable to communicate.) General appearance: alert, in no apparent distress Head exam: Present: atraumatic, normocephalic, normal inspection Eye exam: Present: normal appearance, EOMI. Absent: scleral icterus, conjunctival injection, periorbital swelling ENT exam: Present: normal exam, mucous membranes moist Respiratory exam: Present: wheezes, rhonchi, other (labored cough). Absent: chest wall tenderness Cardiovascular Exam: Present: regular rate, normal rhythm, normal heart sounds. Absent: systolic murmur, diastolic murmur, rubs, gallop, clicks GI/Abdominal exam: Present: soft, normal bowel sounds, other (RUQ pain is apparent with coughing). Absent: distended, tenderness, guarding, rigid Extremities exam: Present: normal inspection, other (no lower extremity edema present). Absent: pedal edema, joint swelling, calf tenderness Neurological exam: Present: alert, CN II-XII intact Psychiatric exam: Present: normal affect, normal mood Skin exam: Present: warm, dry, intact, normal color. Absent: rash Course Vital Signs 06/13/17 06/13/17 06/13/17 09:28 10:06 10:15 Temperature 97.1 F L Pulse Rate 75 72 76 Respiratory 16 Rate Blood Pressure 165/78 O2 Sat by Pulse 95 Oximetry 06/13/17 11:50 Temperature 98.0 F Pulse Rate 71 Respiratory 20 Rate Blood Pressure 131/65 O2 Sat by Pulse 94 L Oximetry Medical Decision Making - Medical Decision Making 82-year-old male present emergency department for decreased appetite cough congestion/upper abdominal pain. Patient had x-rays CT, lab work. Patient found have early signs of pneumonia on CT there is no other signs of infection. Patient is eating and drinking here without difficulty. Patient will be discharged on antibiotics and advised to follow-up with Dr. anjum garcia and who he is seen in the past and return for any worsening symptoms. - Lab Data Result diagrams: 06/13/17 10:00 06/13/17 10:00 Lab Results 06/13/17 06/13/17 06/13/17 Range/Units 10:00 10:00 10:00 WBC 7.3 (3.8-10.6) k/uL RBC 3.80 L (4.30-5.90) m/uL Hgb 12.4 L (13.0-17.5) gm/dL Hct 37.1 L (39.0-53.0) % MCV 97.8 (80.0-100.0) fL MCH 32.6 (25.0-35.0) pg MCHC 33.3 (31.0-37.0) g/dL RDW 12.0 (11.5-15.5) % Plt Count 251 (150-450) k/uL Neutrophils % 69 % Lymphocytes % 18 % Monocytes % 7 % Eosinophils % 4 % Basophils % 0 % Neutrophils # 5.0 (1.3-7.7) k/uL Lymphocytes # 1.3 (1.0-4.8) k/uL Monocytes # 0.5 (0-1.0) k/uL Eosinophils # 0.3 (0-0.7) k/uL Basophils # 0.0 (0-0.2) k/uL Sodium 143 (137-145) mmol/L Potassium 4.4 (3.5-5.1) mmol/L Chloride 109 H (98-107) mmol/L Carbon Dioxide 23 (22-30) mmol/L Anion Gap 11 mmol/L BUN 28 H (9-20) mg/dL Creatinine 2.07 H (0.66-1.25) mg/dL Est GFR (MDRD) Af Amer 37 (>60 ml/min/1.73 sqM) Est GFR (MDRD) Non-Af 31 (>60 ml/min/1.73 sqM) Glucose 143 H (74-99) mg/dL Calcium 9.3 (8.4-10.2) mg/dL Total Bilirubin 0.6 (0.2-1.3) mg/dL AST 30 (17-59) U/L ALT 23 (21-72) U/L Alkaline Phosphatase 85 (38-126) U/L Troponin I <0.012 (0.000-0.034) ng/mL Total Protein 6.8 (6.3-8.2) g/dL Albumin 3.6 (3.5-5.0) g/dL Amylase 62 (30-110) U/L Lipase 240 (23-300) U/L - EKG Data EKG Comments: EKG performed at 11:50 normal sinus rhythm with a rate of 62 CA 150 QRS 74 QT/ QTC 424/4:30 Disposition Clinical Impression: Pneumonia, Decreased appetite Disposition: HOME SELF-CARE Condition: Stable Instructions: Pneumonia (ED) Additional Instructions: Please return to the Emergency Department if symptoms worsen or any other concerns. Prescriptions: Levofloxacin [Levaquin] 500 mg PO DAILY #7 tab Referrals: None,Stated [Primary Care Provider] - 1-2 days Time of Disposition: 12:31
[2017-06-13] MEDS ORDERED: IPRATROPIUM-ALBUTEROL 3 ML NEB INHALATION STA (09:51)
[2017-06-13] MEDS ORDERED: SODIUM CHLORIDE 0.9% 500 ML IV ONE (09:52)
[2017-06-13 10:14] LABS: Basophils % (A) 0 %; Eosinophils # (A) 0.3 k/uL (0-0.7); Eosinophils % (A) 4 %; HCT 37.1 % (39.0-53.0); HGB 12.4 gm/dL (13.0-17.5); Lymphocytes # (A) 1.3 k/uL (1.0-4.8); Lymphocytes % (A) 18 %; MCH 32.6 pg (25.0-35.0); MCHC 33.3 g/dL (31.0-37.0); MCV 97.8 fL (80.0-100.0); Mean Platelet Volume 7.7; Monocytes # (A) 0.5 k/uL (0-1.0); Monocytes % (A) 7 %; Neutrophils % (A) 69 %; Platelet Count 251 k/uL (150-450); WBC 7.3 k/uL (3.8-10.6)
[2017-06-13 10:30] LABS: Albumin 3.6 g/dL (3.5-5.0); Calcium 9.3 mg/dL (8.4-10.2); Potassium 4.4 mmol/L (3.5-5.1); Total Bilirubin 0.6 mg/dL (0.2-1.3); Total Protein 6.8 g/dL (6.3-8.2)
--- NOTE | 2017-06-13 10:40 | XR ---
EXAMINATION TYPE: XR chest 2V DATE OF EXAM: 06/13/2017 HISTORY: Cough/pain. REFERENCE: Previous study dated 08/01/2016. FINDINGS: Lung volumes are prominent. The lungs are clear. Pleural space are clear. The heart is not enlarged. The pulmonary artery are mildly prominent. This may reflect pulmonary artery hypertension. IMPRESSION: COPD.
--- NOTE | 2017-06-13 10:54 | CT ---
EXAMINATION TYPE: CT abdomen pelvis wo con DATE OF EXAM: 06/13/2017 COMPARISON: Previous study dated 03/30/2017 HISTORY: Left sided pain for [address] DLP: 788 mGycm Automated exposure control for dose reduction was used. FINDINGS: There is airspace disease at left lung base. Lungs are otherwise clear. There is no pleural or pericardial fluid. The heart is not enlarged. Within the abdomen, there is colonic interposition present bilaterally. There is a small hiatal hernia. The liver, spleen and gallbladder are normal. Both adrenal glands are normal. There is no evidence of hydronephrosis or nephrolithiasis Limited views of the pancreas are normal. There is moderate atheromatous calcification of the visualized arterial tree. There is worsening left external iliac adenopathy. Lymph node mass measured 2.1 cm previously measure s 2.5 cm today. The bladder is unremarkable. There is extensive diverticulosis of the sigmoid colon with scattered diverticula elsewhere throughou t the colon. I do not see evidence of diverticulitis. The appendix is not visualized with certainty. Small bowel caliber appears normal. There is no free fluid and no free air. There is degenerative disc disease and facet arthropathy within the lumbar spine. IMPRESSION: 1. WORSENING LEFT ILIAC ADENOPATHY. 2. EXTENSIVE DIVERTICULOSIS. 3. LEFT BASILAR AIRSPACE DISEASE WHICH MAY REPRESENT DEVELOPING PNEUMONIA. 4. SMALL HIATAL HERNIA. 5. DEGENERATIVE CHANGES WITHIN THE SPINE.
[2017-06-13] MEDS ORDERED: LEVOFLOXACIN 500 MG TAB PO STA (12:32)
[2017-06-13 12:48] VITALS: BP 137/82; PULSE 67; RESP 22; TEMP 98.8
== END 2017-06-13 12:45 | disposition home or self-care (01) ==
LOC: EC 09:21
DX: J18.9 Pneumonia, unspecified organism (principal); R63.0 Anorexia; R10.11 Right upper quadrant pain; R41.3 Other amnesia; I10 Essential (primary) hypertension; H91.90 Unspecified hearing loss, unspecified ear; Z87.891 Personal history of nicotine dependence; Z79.899 Other long term (current) drug therapy
CPT/HCPCS: 36415; 71046; 74176; 80053; 82150; 83690; 84484; 85025; 93005; 94640; 99284

== ENCOUNTER 2018-09-01 22:17 | Inpatient (IN) | payer OTHER, MEDICARE ==
[2018-09-01] MEDS ORDERED: SODIUM CHLORIDE 0.9% 1,000 ML IV STA (22:29)
[2018-09-01] MEDS ORDERED: PROPOFOL 1,000 MG in EMPTY BAG 1 BAG IV SCH (22:30)
--- NOTE | 2018-09-01 22:39 | ED ---
Altered Mental Status HPI - General Stated Complaint: Sepsis Time Seen by Provider: 09/01/18 22:18 Source: RN notes reviewed, old records reviewed Limitations: altered mental status, physical limitation - History of Present Illness Initial Comments: This is a 3-year-old male the ER for evaluation except in transfer from outside facility for ICU admission. Patient comes in after being found by family to be unresponsive, patient was elevated secondary to altered mental status and respiratory failure and hypoxia. History obtained from EMS as well as patient's chart. Patient is in intubated only able to give any history MD Complaint: altered mental status, decreased responsiveness, weakness -: unknown Severity: severe Consistency of Symptoms: getting worse Context: history of similar presentation Associated Symptoms: weakness, other (unable to give history) Treatments Prior to Arrival: glucose, IV fluid, oxygen, intubation - Related Data Home Medications Medication Instructions Recorded Confirmed Cilostazol [Pletal] 50 mg PO BID 09/02/18 09/02/18 Citalopram Hydrobromide [CeleXA] 20 mg PO DAILY 09/02/18 09/02/18 Donepezil [Aricept] 10 mg PO HS 09/02/18 09/02/18 EPINEPHrine [Epipen 2-Ok] 0.3 mg IM ONCE PRN 09/02/18 09/02/18 Furosemide [Lasix] 20 mg PO DAILY 09/02/18 09/02/18 Levothyroxine Sodium [Synthroid] 25 mcg PO DAILY 09/02/18 09/02/18 Losartan [Cozaar] 25 mg PO DAILY 09/02/18 09/02/18 Allergies Allergy/AdvReac Type Severity Reaction Status Date / Time atorvastatin [From Lipitor] Allergy Unknown Verified 09/02/18 09:26 lisinopril Allergy Unknown Verified 09/02/18 09:26 Review of Systems ROS Statement: Those systems with pertinent positive or pertinent negative responses have been documented in the HPI. ROS Other: All systems not noted in ROS Statement are negative. Past Medical History Past Medical History: Diabetes Mellitus, Hearing Disorder / Deafness, Hyperlipidemia, Hypertension, Memory Impairment Additional Past Medical History / Comment(s): ruptured tendons rt ring and pinky fingers(has sx), peptic ulcer 2011, "in past made mention of ra", "dizzy spells and headaches" History of Any Multi-Drug Resistant Organisms: None Reported Past Surgical History: Tonsillectomy Additional Past Surgical History / Comment(s): carpal tunnel, rt hand ring and pinky fingers tendon repair, margarito cataracts,colonoscopy, hernia repair, skin graft lt leg d/t industrial accident. Past Psychological History: No Psychological Hx Reported Smoking Status: Former smoker Past Alcohol Use History: None Reported Past Drug Use History: None Reported - Past Family History Father Family Medical History: Cancer Additional Family Medical History / Comment(s): colon cancer Brother(s) Family Medical History: Cancer Additional Family Medical History / Comment(s): colon cancer Mother Family Medical History: Asthma General Exam Limitations: altered mental status, physical limitation General appearance: obtunded, in distress, cachectic Head exam: Present: atraumatic, normocephalic, normal inspection Eye exam: Present: normal appearance, PERRL, EOMI. Absent: scleral icterus, conjunctival injection, periorbital swelling ENT exam: Present: normal exam, mucous membranes moist Neck exam: Present: normal inspection. Absent: tenderness, meningismus, lymphadenopathy Respiratory exam: Present: normal lung sounds bilaterally. Absent: respiratory distress, wheezes, rales, rhonchi, stridor Cardiovascular Exam: Present: regular rate, normal rhythm, normal heart sounds. Absent: systolic murmur, diastolic murmur, rubs, gallop, clicks GI/Abdominal exam: Present: soft, normal bowel sounds. Absent: distended, tenderness, guarding, rebound, rigid Extremities exam: Present: normal inspection, full ROM, normal capillary refill. Absent: tenderness, pedal edema, joint swelling, calf tenderness Back exam: Present: normal inspection Neurological exam: Present: alert, oriented X3, CN II-XII intact Psychiatric exam: Present: normal affect, normal mood Skin exam: Present: warm, dry, intact, normal color. Absent: rash Course Vital Signs 09/01/18 09/01/18 09/01/18 22:23 22:26 22:30 Pulse Rate 67 68 Respiratory 19 14 Rate Blood Pressure 87/47 85/72 85/72 O2 Sat by Pulse 85 L Oximetry 09/01/18 09/01/18 09/01/18 22:35 22:40 22:45 Pulse Rate 67 66 66 Respiratory 14 14 14 Rate Blood Pressure 87/47 87/47 87/47 O2 Sat by Pulse 85 L Oximetry 09/01/18 09/01/18 09/01/18 22:50 22:55 23:00 Pulse Rate 65 65 92 Respiratory 14 14 14 Rate Blood Pressure 86/59 O2 Sat by Pulse Oximetry 09/01/18 09/01/18 09/01/18 23:05 23:10 23:15 Pulse Rate 63 68 64 Respiratory 15 14 14 Rate Blood Pressure 91/41 91/41 91/41 O2 Sat by Pulse Oximetry 09/01/18 09/01/18 09/01/18 23:20 23:25 23:30 Pulse Rate 65 64 64 Respiratory 14 14 14 Rate Blood Pressure 81/49 81/49 81/49 O2 Sat by Pulse Oximetry 09/01/18 09/01/18 09/01/18 23:32 23:35 23:40 Pulse Rate 64 65 66 Respiratory 13 14 14 Rate Blood Pressure 76/43 76/43 70/46 O2 Sat by Pulse 85 L Oximetry 09/01/18 09/01/18 09/01/18 23:45 23:50 23:55 Pulse Rate 67 68 68 Respiratory 15 16 16 Rate Blood Pressure 70/46 69/41 69/41 O2 Sat by Pulse Oximetry 09/02/18 09/02/18 09/02/18 00:00 00:03 00:05 Pulse Rate 69 69 Respiratory 17 19 15 Rate Blood Pressure 69/41 60/43 O2 Sat by Pulse Oximetry 09/02/18 09/02/18 09/02/18 00:10 00:15 00:20 Pulse Rate 71 70 Respiratory 19 19 19 Rate Blood Pressure 60/43 60/43 59/39 O2 Sat by Pulse Oximetry 09/02/18 09/02/18 09/02/18 00:25 00:30 00:35 Pulse Rate 63 71 78 Respiratory 19 19 19 Rate Blood Pressure 57/44 55/41 66/35 O2 Sat by Pulse Oximetry 09/02/18 09/02/18 09/02/18 00:40 00:45 00:50 Pulse Rate 80 80 78 Respiratory 19 19 19 Rate Blood Pressure 67/41 70/42 72/42 O2 Sat by Pulse Oximetry 09/02/18 09/02/18 09/02/18 00:55 01:00 01:05 Pulse Rate 84 83 78 Respiratory 19 19 19 Rate Blood Pressure 87/45 90/51 92/64 O2 Sat by Pulse 99 98 99 Oximetry 09/02/18 09/02/18 09/02/18 01:10 01:15 01:20 Pulse Rate 79 75 78 Respiratory 19 19 19 Rate Blood Pressure 102/54 104/54 110/47 O2 Sat by Pulse 99 99 99 Oximetry 09/02/18 09/02/18 09/02/18 01:25 01:30 01:35 Pulse Rate 77 79 79 Respiratory 19 20 20 Rate Blood Pressure 115/57 106/58 107/61 O2 Sat by Pulse 100 100 100 Oximetry 09/02/18 09/02/18 09/02/18 01:40 01:45 01:50 Pulse Rate 84 81 81 Respiratory 19 19 19 Rate Blood Pressure 111/66 106/56 113/56 O2 Sat by Pulse 100 100 100 Oximetry 09/02/18 09/02/18 09/02/18 01:55 02:00 02:05 Pulse Rate 80 92 81 Respiratory 19 19 21 Rate Blood Pressure 112/55 108/55 112/65 O2 Sat by Pulse 100 100 100 Oximetry 09/02/18 09/02/18 09/02/18 02:10 02:15 02:20 Pulse Rate 107 H 80 80 Respiratory 20 18 21 Rate Blood Pressure 99/64 97/57 92/57 O2 Sat by Pulse 99 99 99 Oximetry 09/02/18 09/02/18 09/02/18 02:25 02:30 02:35 Pulse Rate 81 82 Respiratory 19 16 Rate Blood Pressure 89/53 87/53 89/52 O2 Sat by Pulse 99 98 98 Oximetry - Reevaluation(s) Reevaluation #1: 09/01/18 23:18 Medical record including transferring paperwork is reviewed Spoke with Dr. Brar for ICU who is acceptable patient Spoke with family at length regarding patient's poor prognosis, grave condition, they understands, questions are answered, patient is aside be made no CPR, will continue current resuscitative efforts Medical Decision Making - Medical Decision Making 80 female the ER for evaluation, patient is accepted in transfer for acute respiratory failure significant metabolic acidosis likely related to sepsis, patient placed on broad-spectrum antibiotics, patient's currently in abated with central line, blood pressure support. Unresponsive not requiring sedation. Family is at bedside, did speak with family, patient is a no code at this time we'll continue efforts that are in place, but no CPR. - Lab Data Result diagrams: 09/02/18 17:34 09/02/18 15:39 Lab Results 09/01/18 09/01/18 09/01/18 Range/Units 22:45 23:20 23:20 WBC 22.0 H (3.8-10.6) k/uL RBC 2.85 L (4.30-5.90) m/uL Hgb 9.0 L (13.0-17.5) gm/dL Hct 32.1 L (39.0-53.0) % MCV 112.8 H (80.0-100.0) fL MCH 31.7 (25.0-35.0) pg MCHC 28.1 L (31.0-37.0) g/dL RDW 14.2 (11.5-15.5) % Plt Count 194 (150-450) k/uL Neutrophils % (Manual) 54 % Band Neutrophils % 30 % Lymphocytes % (Manual) 13 % Monocytes % (Manual) 1 % Basophils % (Manual) 1 % Metamyelocytes % 2 % Neutrophils # (Manual) 18.40 H (1.3-7.7) k/uL Lymphocytes # (Manual) 2.86 (1.0-4.8) k/uL Monocytes # (Manual) 0.22 (0-1.0) k/uL Basophils # (Manual) 0.22 H (0-0.2) k/uL Metamyelocytes # (Man) 0.44 H (0) k/uL Nucleated RBCs 0 (0-0) /100 WBC Differential Comment Manual Slide Review Performed Toxic Granulation Present Toxic Vacuolation Present Hypochromasia Marked Poikilocytosis (manual Present Macrocytosis Marked PT (9.0-12.0) sec INR (<1.2) APTT (22.0-30.0) sec Sample Site ABG pH (7.35-7.45) ABG pCO2 (35-45) mmHg ABG pO2 (83-108) mmHg ABG HCO3 (21-25) mmol/L ABG Total CO2 (19-24) mmol/L ABG O2 Saturation (94-97) % ABG Base Excess mmol/L Colton Test FiO2 % Sodium 150 H (137-145) mmol/L Potassium 6.2 H* (3.5-5.1) mmol/L Chloride 120 H (98-107) mmol/L Carbon Dioxide <5 L* (22-30) mmol/L Anion Gap mmol/L BUN 198 H* (9-20) mg/dL Creatinine 16.02 H* (0.66-1.25) mg/dL Est GFR (CKD-EPI)AfAm 3 (>60 ml/min/1.73 sqM) Est GFR (CKD-EPI)NonAf 2 (>60 ml/min/1.73 sqM) Glucose 301 H (74-99) mg/dL POC Glucose (mg/dL) 338 H (75-99) mg/dL POC Glu Crane Rigger ID Carey Garza Plasma Lactic Acid Danis (0.7-2.0) mmol/L Calcium 9.0 (8.4-10.2) mg/dL Phosphorus 12.4 H* (2.5-4.5) mg/dL Magnesium 3.4 H (1.6-2.3) mg/dL Total Bilirubin 0.6 (0.2-1.3) mg/dL AST 326 H (17-59) U/L ALT 118 H (21-72) U/L Alkaline Phosphatase 176 H (38-126) U/L Troponin I (0.000-0.034) ng/mL Total Protein 5.2 L (6.3-8.2) g/dL Albumin 2.2 L (3.5-5.0) g/dL TSH 15.900 H (0.465-4.680) mIU/L 09/01/18 09/01/18 09/01/18 Range/Units 23:20 23:20 23:20 WBC (3.8-10.6) k/uL RBC (4.30-5.90) m/uL Hgb (13.0-17.5) gm/dL Hct (39.0-53.0) % MCV (80.0-100.0) fL MCH (25.0-35.0) pg MCHC (31.0-37.0) g/dL RDW (11.5-15.5) % Plt Count (150-450) k/uL Neutrophils % (Manual) % Band Neutrophils % % Lymphocytes % (Manual) % Monocytes % (Manual) % Basophils % (Manual) % Metamyelocytes % % Neutrophils # (Manual) (1.3-7.7) k/uL Lymphocytes # (Manual) (1.0-4.8) k/uL Monocytes # (Manual) (0-1.0) k/uL Basophils # (Manual) (0-0.2) k/uL Metamyelocytes # (Man) (0) k/uL Nucleated RBCs (0-0) /100 WBC Differential Comment Manual Slide Review Toxic Granulation Toxic Vacuolation Hypochromasia Poikilocytosis (manual Macrocytosis PT 13.3 H (9.0-12.0) sec INR 1.3 H (<1.2) APTT 34.1 H (22.0-30.0) sec Sample Site ABG pH (7.35-7.45) ABG pCO2 (35-45) mmHg ABG pO2 (83-108) mmHg ABG HCO3 (21-25) mmol/L ABG Total CO2 (19-24) mmol/L ABG O2 Saturation (94-97) % ABG Base Excess mmol/L Colton Test FiO2 % Sodium (137-145) mmol/L Potassium (3.5-5.1) mmol/L Chloride (98-107) mmol/L Carbon Dioxide (22-30) mmol/L Anion Gap mmol/L BUN (9-20) mg/dL Creatinine (0.66-1.25) mg/dL Est GFR (CKD-EPI)AfAm (>60 ml/min/1.73 sqM) Est GFR (CKD-EPI)NonAf (>60 ml/min/1.73 sqM) Glucose (74-99) mg/dL POC Glucose (mg/dL) (75-99) mg/dL POC Glu Crane Rigger ID Plasma Lactic Acid Danis 13.4 H* (0.7-2.0) mmol/L Calcium (8.4-10.2) mg/dL Phosphorus (2.5-4.5) mg/dL Magnesium (1.6-2.3) mg/dL Total Bilirubin (0.2-1.3) mg/dL AST (17-59) U/L ALT (21-72) U/L Alkaline Phosphatase (38-126) U/L Troponin I 0.072 H* (0.000-0.034) ng/mL Total Protein (6.3-8.2) g/dL Albumin (3.5-5.0) g/dL TSH (0.465-4.680) mIU/L 09/01/18 Range/Units 23:23 WBC (3.8-10.6) k/uL RBC (4.30-5.90) m/uL Hgb (13.0-17.5) gm/dL Hct (39.0-53.0) % MCV (80.0-100.0) fL MCH (25.0-35.0) pg MCHC (31.0-37.0) g/dL RDW (11.5-15.5) % Plt Count (150-450) k/uL Neutrophils % (Manual) % Band Neutrophils % % Lymphocytes % (Manual) % Monocytes % (Manual) % Basophils % (Manual) % Metamyelocytes % % Neutrophils # (Manual) (1.3-7.7) k/uL Lymphocytes # (Manual) (1.0-4.8) k/uL Monocytes # (Manual) (0-1.0) k/uL Basophils # (Manual) (0-0.2) k/uL Metamyelocytes # (Man) (0) k/uL Nucleated RBCs (0-0) /100 WBC Differential Comment Manual Slide Review Toxic Granulation Toxic Vacuolation Hypochromasia Poikilocytosis (manual Macrocytosis PT (9.0-12.0) sec INR (<1.2) APTT (22.0-30.0) sec Sample Site Right Radial ABG pH <7.00 L* (7.35-7.45) ABG pCO2 25 L (35-45) mmHg ABG pO2 >400 H (83-108) mmHg ABG HCO3 4 L* (21-25) mmol/L ABG Total CO2 5 L (19-24) mmol/L ABG O2 Saturation 99.2 H (94-97) % ABG Base Excess 3.8 mmol/L Colton Test Yes FiO2 100 % Sodium (137-145) mmol/L Potassium (3.5-5.1) mmol/L Chloride (98-107) mmol/L Carbon Dioxide (22-30) mmol/L Anion Gap mmol/L BUN (9-20) mg/dL Creatinine (0.66-1.25) mg/dL Est GFR (CKD-EPI)AfAm (>60 ml/min/1.73 sqM) Est GFR (CKD-EPI)NonAf (>60 ml/min/1.73 sqM) Glucose (74-99) mg/dL POC Glucose (mg/dL) (75-99) mg/dL POC Glu Crane Rigger ID Plasma Lactic Acid Danis (0.7-2.0) mmol/L Calcium (8.4-10.2) mg/dL Phosphorus (2.5-4.5) mg/dL Magnesium (1.6-2.3) mg/dL Total Bilirubin (0.2-1.3) mg/dL AST (17-59) U/L ALT (21-72) U/L Alkaline Phosphatase (38-126) U/L Troponin I (0.000-0.034) ng/mL Total Protein (6.3-8.2) g/dL Albumin (3.5-5.0) g/dL TSH (0.465-4.680) mIU/L - EKG Data -: EKG Interpreted by Me (EKG shows sinus rhythm rate of 67, KS 170, QRS 84, QTC 445) - Radiology Data Radiology results: report reviewed (Chest x-rays negative for acute disease), image reviewed Critical Care Time Critical Care Time: Yes Total Critical Care Time: 65 Disposition Clinical Impression: Altered mental status, Sepsis, Acute respiratory failure, Dementia, UTI (urinary tract infection), Metabolic acidosis, Renal failure (ARF), acute on chronic, Shock Disposition: ADMITTED IP TO THIS [facility] Condition: Critical Is patient prescribed a controlled substance at d/c from ED?: No
[2018-09-01 22:50] LABS: Glucose,Whole Blood 338 mg/dL (75-99)
[2018-09-01] MEDS ORDERED: PIPERACILLIN-TAZOBACTAM 3.375 GM in SODIUM CHLORIDE 0.9% 100 ML IVPB STA (23:24)
[2018-09-01] MEDS ORDERED: VANCOMYCIN IV PER PHARMACY 1 EACH MISC MISCELLANE PRN (23:24)
[2018-09-01] MEDS ORDERED: LEVOFLOXACIN 750MG-D5W PMX 750 MG in DEXTROSE/WATER 1 150ML.BAG IVPB STA (23:24)
[2018-09-01] MEDS ORDERED: NALOXONE 0.4 MG/ML 1 ML VIAL IV PRN (23:24)
[2018-09-01 23:28] LABS: ABG Oxygen Saturation 99.2 % (94-97); ABG PCO2 25 mmHg (35-45); ABG PO2 >400 mmHg (83-108); ABG TCO2 5 mmol/L (19-24)
[2018-09-01] MEDS ORDERED: DEXTROSE 5%-0.45% NACL 1,000 ML IV SCH (23:30)
[2018-09-01] MEDS ORDERED: LACTATED RINGERS 1,000 ML IV SCH (23:30)
[2018-09-01] MEDS ORDERED: SODIUM BICARB 8.4% 50 ML SYR (1 MEQ/ML) IV STA ×2 (23:34)
[2018-09-01 23:35] LABS: ABG Base Excess 3.8 mmol/L; ABG HCO3 4 mmol/L (21-25); ABG PH <7.00 (7.35-7.45)
[2018-09-02] MEDS ORDERED: NOREPINEPHRINE 32 MG in SODIUM CHLORIDE 0.9% 218 ML IV SCH ×2
[2018-09-02] MEDS ORDERED: VANCOMYCIN 1,250 MG in SODIUM CHLORIDE 0.9% 250 ML IVPB ONE ×2
[2018-09-02 00:06] LABS: HCT 32.1 % (39.0-53.0); Hypochromasia Marked; MCH 31.7 pg (25.0-35.0); MCHC 28.1 g/dL (31.0-37.0); MCV 112.8 fL (80.0-100.0); Macrocytosis Marked; Mean Platelet Volume 10.4; Platelet Count 194 k/uL (150-450); RBC 2.85 m/uL (4.30-5.90); RDW 14.2 % (11.5-15.5)
[2018-09-02 00:10] LABS: ALT 118 U/L (21-72); AST 326 U/L (17-59); Albumin 2.2 g/dL (3.5-5.0); Alkaline Phosphatase 176 U/L (38-126); Chloride 120 mmol/L (98-107); Glucose 301 mg/dL (74-99); Magnesium 3.4 mg/dL (1.6-2.3); Sodium 150 mmol/L (137-145); Total Bilirubin 0.6 mg/dL (0.2-1.3); Total Protein 5.2 g/dL (6.3-8.2)
[2018-09-02] MEDS: DEXTROSE 5% IN WATER 1,000 ML with SODIUM BICARB (1 MEQ/ML) 150 ML IV SCH ×2 (00:14→14:24)
[2018-09-02] MEDS: HYDROCORTISONE SUCCINATE 100 MG/2 ML VIAL IV SCH ×3 (00:26→14:32)
[2018-09-02 00:31] LABS: INR 1.3 (<1.2); Partial Thromboplastin Time 34.1 sec (22.0-30.0); Prothrombin Time 13.3 sec (9.0-12.0)
[2018-09-02 00:43] LABS: Blood Urea Nitrogen 198 mg/dL (9-20)
[2018-09-02 00:44] LABS: Phosphorus 12.4 mg/dL (2.5-4.5)
[2018-09-02 00:45] LABS: Carbon Dioxide <5 mmol/L (22-30); Potassium 6.2 mmol/L (3.5-5.1)
[2018-09-02 00:48] LABS: Band Neutrophils % 30 %; Basophils # (M) 0.22 k/uL (0-0.2); Lymphocytes # (M) 2.86 k/uL (1.0-4.8); Metamyelocytes # (M) 0.44 k/uL (0); Metamyelocytes % 2 %; Monocytes # (M) 0.22 k/uL (0-1.0); Neutrophils % (M) 54 %; Nucleated Red Blood Cells 0 /100 WBC (0-0); Total Cells Counted 200
[2018-09-02 00:53] LABS: Poikilocytosis (M) Present
[2018-09-02 00:54] LABS: Toxic Granulation Present; Toxic Vacuolation Present
[2018-09-02] MEDS: LACTATED RINGERS 1,000 ML IV SCH ×3 (01:07→11:42)
[2018-09-02] MEDS ORDERED: PIPERACILLIN-TAZOBACTAM 3.375 GM in SODIUM CHLORIDE 0.9% 100 ML IVPB SCH ×4 (02:24→12:00)
[2018-09-02 02:30] LABS: Glucose,Whole Blood 311 mg/dL (75-99)
--- NOTE | 2018-09-02 02:36 | XR ---
EXAM: XR Chest, 1 View CLINICAL HISTORY: ITS.REASON XR Reason: Pain TECHNIQUE: Frontal view of the chest. COMPARISON: 06/13/2017 chest x-ray IMPRESSION: Normal heart size. NG tube side port terminates in the gastric fundus. Recommend advancing 5-10 cm. ET tube terminates 3.1 cm from the alexsandra. No consolidation or pleural effusion.
[2018-09-02 04:37] LABS: HCT 32.7 % (39.0-53.0); HGB 9.6 gm/dL (13.0-17.5); Hypochromasia Marked; MCH 31.8 pg (25.0-35.0); MCHC 29.5 g/dL (31.0-37.0); MCV 107.9 fL (80.0-100.0); Macrocytosis Moderate; Platelet Count 167 k/uL (150-450); RBC 3.03 m/uL (4.30-5.90); RDW 14.5 % (11.5-15.5); WBC 17.3 k/uL (3.8-10.6)
[2018-09-02 04:46] LABS: INR 1.3 (<1.2); Partial Thromboplastin Time 38.3 sec (22.0-30.0); Prothrombin Time 13.4 sec (9.0-12.0)
[2018-09-02 04:47] LABS: ABG Base Excess -21.2 mmol/L; ABG Oxygen Saturation 98.9 % (94-97); ABG PCO2 25 mmHg (35-45); ABG PO2 181 mmHg (83-108); ABG TCO2 9 mmol/L (19-24)
[2018-09-02 04:50] LABS: ABG HCO3 8 mmol/L (21-25); ABG PH 7.12 (7.35-7.45)
[2018-09-02 05:05] LABS: Albumin 2.2 g/dL (3.5-5.0); Calcium 8.6 mg/dL (8.4-10.2); Potassium 5.7 mmol/L (3.5-5.1); Total Bilirubin 0.9 mg/dL (0.2-1.3); Total Protein 5.2 g/dL (6.3-8.2)
[2018-09-02 05:53] LABS: Phosphorus 10.7 mg/dL (2.5-4.5)
[2018-09-02 06:13] LABS: Band Neutrophils % 37 %; Lymphocytes # (M) 0.35 k/uL (1.0-4.8); Metamyelocytes # (M) 0.17 k/uL (0); Metamyelocytes % 1 %; Neutrophils % (M) 60 %; Nucleated Red Blood Cells 0 /100 WBC (0-0); Total Cells Counted 200
[2018-09-02 06:14] LABS: Toxic Granulation Present; Toxic Vacuolation Present
[2018-09-02] MEDS ORDERED: SODIUM CHLORIDE 0.9% 1,000 ML IV SCH (06:45)
[2018-09-02] MEDS: IPRATROPIUM-ALBUTEROL 3 ML NEB INHALATION SCH ×4 (07:03→19:08)
[2018-09-02] MEDS: INSULIN ASPART (NovoLOG) 100 UNIT/ML VIAL SQ SCH ×3 (07:14→22:52)
[2018-09-02 07:21] LABS: Glucose,Whole Blood 309 mg/dL (75-99)
--- NOTE | 2018-09-02 08:28 | P.HPIM ---
History of Present Illness This is an 83 years old male with past medical history of diabetes mellitus, hyperlipidemia, hypertension, memory impairment, hearing difficulty. As per daughter at bedside Mrs. Pradhan was is the POA, patient was last seen yesterday 5. In his usual state however and 50 minutes patient was noticed to be cuspid for air and became unresponsive and she called EMS, when patient was taken to [facility] and got intubated there then pt was transferred to this hosptial for furhter managment At baseline Patient has dementia as per daughter, he talks few words, he could not recognize her sister, usually he does not ask for help to begin him on feeding through his daughter Ms. Pradhan comes and helps him with this Currently patient is intubated and cannot provide information, and he is on norepinephrine at 30, and on propofol for sedation Physical showing WBC 17.3 K, hemoglobin 9.6, INR 1.3 bicarb 8, creatinine 14.4, potassium 5.7, glucose is elevated 200-300, lactic acid 11.9, phosphorus 10.7, magnesium 3.0, normal bilirubin but elevated liver enzymes, troponin 0.07, lipase is 192 7. Chest x-ray showing no consolidation with no significant ST-T changes. Is currently on Levophed, D5 normal saline, Zosyn, hydrocortisone, Levaquin, and vancomycin Review of Systems N/a Past Medical History Past Medical History: Diabetes Mellitus, Hearing Disorder / Deafness, Hyperlipidemia, Hypertension, Memory Impairment Additional Past Medical History / Comment(s): ruptured tendons rt ring and pinky fingers(has sx), peptic ulcer 2011, "in past made mention of ra", "dizzy spells and headaches" History of Any Multi-Drug Resistant Organisms: None Reported Past Surgical History: Tonsillectomy Additional Past Surgical History / Comment(s): carpal tunnel, rt hand ring and pinky fingers tendon repair, margarito cataracts,colonoscopy, hernia repair, skin graft lt leg d/t industrial accident. Past Psychological History: No Psychological Hx Reported Smoking Status: Former smoker Past Alcohol Use History: None Reported Past Drug Use History: None Reported - Past Family History Father Family Medical History: Cancer Additional Family Medical History / Comment(s): colon cancer Brother(s) Family Medical History: Cancer Additional Family Medical History / Comment(s): colon cancer Mother Family Medical History: Asthma Medications and Allergies Allergies Allergy/AdvReac Type Severity Reaction Status Date / Time No Known Allergies Allergy Verified 09/01/18 22:32 Physical Exam Vitals: Vital Signs Pulse Resp BP Pulse Ox 09/02/18 07:30 98 29 H 111/57 99 09/02/18 07:15 99 25 H 99/67 99 09/02/18 07:08 101 H 09/02/18 07:00 104 H 24 100/47 99 09/02/18 06:45 116 H 25 H 107/74 98 09/02/18 06:30 115 H 24 86/33 97 09/02/18 06:15 103 H 28 H 88/52 97 09/02/18 06:02 104 H 17 91/42 98 09/02/18 02:35 89/52 98 09/02/18 02:30 82 16 87/53 98 09/02/18 02:25 81 19 89/53 99 09/02/18 02:20 80 21 92/57 99 09/02/18 02:15 80 18 97/57 99 09/02/18 02:10 107 H 20 99/64 99 09/02/18 02:05 81 21 112/65 100 09/02/18 02:00 92 19 108/55 100 09/02/18 01:55 80 19 112/55 100 09/02/18 01:50 81 19 113/56 100 09/02/18 01:45 81 19 106/56 100 09/02/18 01:40 84 19 111/66 100 09/02/18 01:35 79 20 107/61 100 09/02/18 01:30 79 20 106/58 100 09/02/18 01:25 77 19 115/57 100 09/02/18 01:20 78 19 110/47 99 09/02/18 01:15 75 19 104/54 99 09/02/18 01:10 79 19 102/54 99 09/02/18 01:05 78 19 92/64 99 09/02/18 01:00 83 19 90/51 98 09/02/18 00:55 84 19 87/45 99 09/02/18 00:50 78 19 72/42 09/02/18 00:45 80 19 70/42 09/02/18 00:40 80 19 67/41 09/02/18 00:35 78 19 66/35 0502/19 00:30 71 19 55/41 09/02/18 00:25 63 19 57/44 09/02/18 00:20 70 19 59/39 09/02/18 00:15 71 19 60/43 09/02/18 00:10 19 60/43 09/02/18 00:05 69 15 60/43 09/02/18 00:03 19 09/02/18 00:00 69 17 69/41 09/01/18 23:55 68 16 69/41 09/01/18 23:50 68 16 69/41 09/01/18 23:45 67 15 70/46 09/01/18 23:40 66 14 70/46 09/01/18 23:35 65 14 76/43 09/01/18 23:32 64 13 76/43 85 L 09/01/18 23:30 64 14 81/49 09/01/18 23:25 64 14 81/49 09/01/18 23:20 65 14 81/49 09/01/18 23:15 64 14 91/41 09/01/18 23:10 68 14 91/41 09/01/18 23:05 63 15 91/41 09/01/18 23:00 92 14 86/59 09/01/18 22:55 65 14 09/01/18 22:50 65 14 09/01/18 22:45 66 14 87/47 09/01/18 22:40 66 14 87/47 85 L 09/01/18 22:35 67 14 87/47 09/01/18 22:30 68 14 85/72 09/01/18 22:26 85/72 09/01/18 22:23 67 19 87/47 85 L Intake and Output 09/01/18 09/02/18 09/02/18 22:59 06:59 14:59 Intake Total 1001.241 250 Output Total 460 0 Balance 541.241 250 Intake: IV 1000 250 0.9 600 150 Bicarb 400 100 Intake, IV Titration 1.241 Amount Norepinephrine 32 mg In 1.241 Sodium Chloride 0.9% 218 ml @ 0.05 MCG/KG/MIN 1. 488 mls/hr IV .Q24H [facility] Rx#:[id number] Output: Gastric Drainage 200 Urine 260 0 Other: Voiding Method Indwelling Catheter Weight 63.503 kg -GENERAL: The patient is intubated and sedated HEENT: Pupils are round and equally reacting to light. EOMI. No scleral icterus. No conjunctival pallor. Normocephalic, atraumatic. No pharyngeal erythema. No thyromegaly. CARDIOVASCULAR: S1 and S2 present. No murmurs, rubs, or gallops. PULMONARY: Chest is clear to auscultation, no wheezing or crackles. ABDOMEN: Soft, nontender, nondistended, normoactive bowel sounds. No palpable organomegaly. MUSCULOSKELETAL: No joint swelling or deformity. EXTREMITIES: No cyanosis, clubbing, or pedal edema. NEUROLOGICAL: Gross neurological examination did not reveal any focal deficits. SKIN: No rashes. Results CBC & Chem 7: 09/02/18 04:00 09/02/18 04:00 Labs: Abnormal Lab Results - Last 24 Hours (Table) 09/01/18 09/01/18 09/01/18 Range/Units 22:45 23:20 23:20 WBC 22.0 H (3.8-10.6) k/uL RBC 2.85 L (4.30-5.90) m/uL Hgb 9.0 L (13.0-17.5) gm/dL Hct 32.1 L (39.0-53.0) % MCV 112.8 H (80.0-100.0) fL MCHC 28.1 L (31.0-37.0) g/dL Neutrophils # (Manual) 18.40 H (1.3-7.7) k/uL Lymphocytes # (Manual) (1.0-4.8) k/uL Basophils # (Manual) 0.22 H (0-0.2) k/uL Metamyelocytes # (Man) 0.44 H (0) k/uL PT (9.0-12.0) sec INR (<1.2) APTT (22.0-30.0) sec ABG pH (7.35-7.45) ABG pCO2 (35-45) mmHg ABG pO2 (83-108) mmHg ABG HCO3 (21-25) mmol/L ABG Total CO2 (19-24) mmol/L ABG O2 Saturation (94-97) % Sodium 150 H (137-145) mmol/L Potassium 6.2 H* (3.5-5.1) mmol/L Chloride 120 H (98-107) mmol/L Carbon Dioxide <5 L* (22-30) mmol/L BUN 198 H* (9-20) mg/dL Creatinine 16.02 H* (0.66-1.25) mg/dL Glucose 301 H (74-99) mg/dL POC Glucose (mg/dL) 338 H (75-99) mg/dL Plasma Lactic Acid Danis (0.7-2.0) mmol/L Phosphorus 12.4 H* (2.5-4.5) mg/dL Magnesium 3.4 H (1.6-2.3) mg/dL AST 326 H (17-59) U/L ALT 118 H (21-72) U/L Alkaline Phosphatase 176 H (38-126) U/L Troponin I (0.000-0.034) ng/mL Total Protein 5.2 L (6.3-8.2) g/dL Albumin 2.2 L (3.5-5.0) g/dL Lipase (23-300) U/L TSH 15.900 H (0.465-4.680) mIU/L 09/01/18 09/01/18 09/01/18 Range/Units 23:20 23:20 23:20 WBC (3.8-10.6) k/uL RBC (4.30-5.90) m/uL Hgb (13.0-17.5) gm/dL Hct (39.0-53.0) % MCV (80.0-100.0) fL MCHC (31.0-37.0) g/dL Neutrophils # (Manual) (1.3-7.7) k/uL Lymphocytes # (Manual) (1.0-4.8) k/uL Basophils # (Manual) (0-0.2) k/uL Metamyelocytes # (Man) (0) k/uL PT 13.3 H (9.0-12.0) sec INR 1.3 H (<1.2) APTT 34.1 H (22.0-30.0) sec ABG pH (7.35-7.45) ABG pCO2 (35-45) mmHg ABG pO2 (83-108) mmHg ABG HCO3 (21-25) mmol/L ABG Total CO2 (19-24) mmol/L ABG O2 Saturation (94-97) % Sodium (137-145) mmol/L Potassium (3.5-5.1) mmol/L Chloride (98-107) mmol/L Carbon Dioxide (22-30) mmol/L BUN (9-20) mg/dL Creatinine (0.66-1.25) mg/dL Glucose (74-99) mg/dL POC Glucose (mg/dL) (75-99) mg/dL Plasma Lactic Acid Danis 13.4 H* (0.7-2.0) mmol/L Phosphorus (2.5-4.5) mg/dL Magnesium (1.6-2.3) mg/dL AST (17-59) U/L ALT (21-72) U/L Alkaline Phosphatase (38-126) U/L Troponin I 0.072 H* (0.000-0.034) ng/mL Total Protein (6.3-8.2) g/dL Albumin (3.5-5.0) g/dL Lipase (23-300) U/L TSH (0.465-4.680) mIU/L 09/01/18 09/02/18 09/02/18 Range/Units 23:23 02:27 04:00 WBC (3.8-10.6) k/uL RBC (4.30-5.90) m/uL Hgb (13.0-17.5) gm/dL Hct (39.0-53.0) % MCV (80.0-100.0) fL MCHC (31.0-37.0) g/dL Neutrophils # (Manual) (1.3-7.7) k/uL Lymphocytes # (Manual) (1.0-4.8) k/uL Basophils # (Manual) (0-0.2) k/uL Metamyelocytes # (Man) (0) k/uL PT (9.0-12.0) sec INR (<1.2) APTT (22.0-30.0) sec ABG pH <7.00 L* (7.35-7.45) ABG pCO2 25 L (35-45) mmHg ABG pO2 >400 H (83-108) mmHg ABG HCO3 4 L* (21-25) mmol/L ABG Total CO2 5 L (19-24) mmol/L ABG O2 Saturation 99.2 H (94-97) % Sodium 149 H (137-145) mmol/L Potassium 5.7 H (3.5-5.1) mmol/L Chloride 115 H (98-107) mmol/L Carbon Dioxide 9 L* (22-30) mmol/L BUN 194 H* (9-20) mg/dL Creatinine 14.47 H* (0.66-1.25) mg/dL Glucose 293 H (74-99) mg/dL POC Glucose (mg/dL) 311 H (75-99) mg/dL Plasma Lactic Acid Danis (0.7-2.0) mmol/L Phosphorus 10.7 H* (2.5-4.5) mg/dL Magnesium 3.0 H (1.6-2.3) mg/dL AST 528 H (17-59) U/L ALT 173 H (21-72) U/L Alkaline Phosphatase 211 H (38-126) U/L Troponin I (0.000-0.034) ng/mL Total Protein 5.2 L (6.3-8.2) g/dL Albumin 2.2 L (3.5-5.0) g/dL Lipase 1927 H (23-300) U/L TSH (0.465-4.680) mIU/L 09/02/18 09/02/18 09/02/18 Range/Units 04:00 04:00 04:00 WBC 17.3 H (3.8-10.6) k/uL RBC 3.03 L (4.30-5.90) m/uL Hgb 9.6 L (13.0-17.5) gm/dL Hct 32.7 L (39.0-53.0) % MCV 107.9 H (80.0-100.0) fL MCHC 29.5 L (31.0-37.0) g/dL Neutrophils # (Manual) 16.70 H (1.3-7.7) k/uL Lymphocytes # (Manual) 0.35 L (1.0-4.8) k/uL Basophils # (Manual) (0-0.2) k/uL Metamyelocytes # (Man) 0.17 H (0) k/uL PT 13.4 H (9.0-12.0) sec INR 1.3 H (<1.2) APTT 38.3 H (22.0-30.0) sec ABG pH (7.35-7.45) ABG pCO2 (35-45) mmHg ABG pO2 (83-108) mmHg ABG HCO3 (21-25) mmol/L ABG Total CO2 (19-24) mmol/L ABG O2 Saturation (94-97) % Sodium (137-145) mmol/L Potassium (3.5-5.1) mmol/L Chloride (98-107) mmol/L Carbon Dioxide (22-30) mmol/L BUN (9-20) mg/dL Creatinine (0.66-1.25) mg/dL Glucose (74-99) mg/dL POC Glucose (mg/dL) (75-99) mg/dL Plasma Lactic Acid Danis 11.9 H* (0.7-2.0) mmol/L Phosphorus (2.5-4.5) mg/dL Magnesium (1.6-2.3) mg/dL AST (17-59) U/L ALT (21-72) U/L Alkaline Phosphatase (38-126) U/L Troponin I (0.000-0.034) ng/mL Total Protein (6.3-8.2) g/dL Albumin (3.5-5.0) g/dL Lipase (23-300) U/L TSH (0.465-4.680) mIU/L 09/02/18 09/02/18 Range/Units 04:43 07:09 WBC (3.8-10.6) k/uL RBC (4.30-5.90) m/uL Hgb (13.0-17.5) gm/dL Hct (39.0-53.0) % MCV (80.0-100.0) fL MCHC (31.0-37.0) g/dL Neutrophils # (Manual) (1.3-7.7) k/uL Lymphocytes # (Manual) (1.0-4.8) k/uL Basophils # (Manual) (0-0.2) k/uL Metamyelocytes # (Man) (0) k/uL PT (9.0-12.0) sec INR (<1.2) APTT (22.0-30.0) sec ABG pH 7.12 L* (7.35-7.45) ABG pCO2 25 L (35-45) mmHg ABG pO2 181 H (83-108) mmHg ABG HCO3 8 L* (21-25) mmol/L ABG Total CO2 9 L (19-24) mmol/L ABG O2 Saturation 98.9 H (94-97) % Sodium (137-145) mmol/L Potassium (3.5-5.1) mmol/L Chloride (98-107) mmol/L Carbon Dioxide (22-30) mmol/L BUN (9-20) mg/dL Creatinine (0.66-1.25) mg/dL Glucose (74-99) mg/dL POC Glucose (mg/dL) 309 H (75-99) mg/dL Plasma Lactic Acid Danis (0.7-2.0) mmol/L Phosphorus (2.5-4.5) mg/dL Magnesium (1.6-2.3) mg/dL AST (17-59) U/L ALT (21-72) U/L Alkaline Phosphatase (38-126) U/L Troponin I (0.000-0.034) ng/mL Total Protein (6.3-8.2) g/dL Albumin (3.5-5.0) g/dL Lipase (23-300) U/L TSH (0.465-4.680) mIU/L Assessment and Plan Assessment: possible septic shock Periods of unresponsiveness Acute hypoxic respiratory failure, status post intubation Acute renal failure Hyperkalemia High Lactic acid Metabolic acidosis Most likely History of advanced or end-stage dementia , at baseline Elevated liver enzymes Elevated troponin Diabetes mellitus Hypertension Hyperlipidemia Memory impairment Plan: This is a 83 years old male who presents with periods of unresponsiveness, and respiratory failure, status post intubation. critical care team to see the patient, , Continue with antibiotics, continue with pressors, continue with parenteral fluids, Labs and medication were reviewed.. Continue same treatment. Continue with symptomatic treatment. Resume home medication. Monitor lytes and vitals. DVT and GI prophylaxis. Further recommendations of the clinical course of the patient DVT prophylaxis: Subcutaneous Lovenox GI Prophylaxis: Protonix Prognosis is guarded and poor his duahgter Ms Pradhan who is his DPOA as she is telling me want him to be DO NOT RESUSCITATE after long discussion with her. She was hesitant about making him full code or DO NOT RESUSCITATE and she changes her mind at times, she wasn't sure about his CODE STATUS and she wanted to discuss it with the critical care team, however she clearly told me that she wants him to be DO NOT RESUSCITATE told them and I explained to her that means if he dies we were not going to resuscitate him by doing chest compression and she verbalized understanding and acceptance for the DO NOT RESUSCITATE., Staff are aware with this and that currently his DO NOT RESUSCITATE
[2018-09-02] MEDS ORDERED: ENOXAPARIN 40 MG/0.4 ML SYRINGE SQ SCH (09:00)
[2018-09-02] MEDS ORDERED: PANTOPRAZOLE 40 MG/10 ML VIAL IV SCH (09:00)
[2018-09-02 11:26] LABS: Appearance,Urine Bloody (Clear); Bacteria,Urine Many /hpf; RBC,Urine >182 /hpf (0-5)
[2018-09-02 11:27] LABS: Color,Urine Red
--- NOTE | 2018-09-02 11:42 | US ---
EXAMINATION TYPE: US venous doppler duplex LE LT DATE OF EXAM: 09/02/2018 11:04 AM COMPARISON: NONE CLINICAL HISTORY: rule out DVt. SIDE PERFORMED: Left TECHNIQUE: The lower extremity deep venous system is examined utilizing real time linear array sonog candelario with graded compression, doppler sonography and color-flow sonography. VESSELS IMAGED: External Iliac Vein (EIV) Common Femoral Vein Deep Femoral Vein Greater Saphenous Vein * Femoral Vein Popliteal Vein Small Saphenous Vein * Proximal Calf Veins (* superficial vessels) Left Leg: Technical limitations, ICU patient with IV and bandage left upper thigh, unable to visuali ze GSV or Deep femoral vein *Positive for DVT, incomplete compressions and thready flow EIV extending into popliteal vein IMPRESSION: 1. Left lower extremity is positive for deep venous thrombosis. 2. There is limitation on the examination due to patient's bandaging.
--- NOTE | 2018-09-02 11:44 | US ---
EXAMINATION TYPE: US abd limited kidneys/bladder DATE OF EXAM: 09/02/2018 COMPARISON: NONE CLINICAL HISTORY: acute kidney injury. Renal failure, elevated liver enzymes EXAM MEASUREMENTS: Liver Length: 11.9 cm Gallbladder Wall: 0.2 cm CBD: 0.3 cm Right Kidney: 9.1 x 4.8 x 5.2 cm Left Kidney: 9.0 x 3.6 x 4.7 cm Technical limitations, Intubated ICU patient with large amount of overlying bowel content Pancreas: Obscured by bowel gas Liver: visualized portions appear wnl Gallbladder: no evidence of stones as visualized CBD: appears wnl as visualized Right Kidney: Mild hydronephrosis Left Kidney: Moderate hydronephrosis Bladder: unable to visualize, patient has Shipman Catheter IMPRESSION: 1. Bilateral renal hydronephrosis. 2. Examination his limitations due to bowel gas.
--- NOTE | 2018-09-02 12:06 | P.NPCON ---
History of Present Illness - Reason for Consult acute renal failure - History of Present Illness Reason for consultation: Acute kidney injury History of present illness: Patient is a 83-year-old male seen in consultation for acute kidney injury. Patient's creatinine on admission was 16 and is 14.47 today. BUN remains significantly elevated. Patient is extremely acidotic. He is currently on a bicarb drip and bicarb level this morning was 9. He was also hyperkalemic and potassium level this morning was 5.7. Patient is oliguric. He was found unresponsive at home by his family members and was brought to the hospital. He's been getting progressively weaker and more lethargic over the last few d ays. He is also noted to have a coccyx wound. He has history of dementia. Patient has received a total of 4 L of IV fluid bolus and is now maintained on bicarb drip as well as normal saline. He is currently intubated and sedated. Patient's creatinine in June 2017 was 2. UA is suggestive of UTI. He was on Cozaar as well as Lasix at home which are both currently held. Cultures are negative so far. He is maintained on IV antibiotics. He is on 31 mics of Levophed at this time. Vital signs: Currently on vasopressors. General: The patient appeared well nourished and normally developed. HEENT: Head exam is unremarkable. Neck is without jugular venous distension. LUNGS: Breath sounds decreased. Scattered rhonchi HEART: Tachycardic. No murmurs, rubs or gallops. ABDOMEN: Bowel sounds present. Soft. EXTREMITITES: No clubbing, cyanosis, or edema. Past Medical History Past Medical History: Diabetes Mellitus, Hearing Disorder / Deafness, Hy perlipidemia, Hypertension, Memory Impairment Additional Past Medical History / Comment(s): ruptured tendons rt ring and pinky fingers(has sx), peptic ulcer 2011, "in past made mention of ra", "dizzy spells and headaches" History of Any Multi-Drug Resistant Organisms: None Reported Past Surgical History: Tonsillectomy Additional Past Surgical History / Comment(s): carpal tunnel, rt hand ring and p inky fingers tendon repair, margarito cataracts,colonoscopy, hernia repair, skin graft lt leg d/t industrial accident. Past Psychological History: No Psychological Hx Reported Additional Psychological History / Comment(s): pt's 4 years ago . pt lives with daughter yogi in home that has 4 steps into home. uses a cane or walker as needed. has 1 pet bird. Pt served in the [employer] in the past. 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 Smoking Status: Former smoker Past Alcohol Use History: None Reported Past Drug Use History: None Reported - Past Family History Father Family Medical History: Cancer Additional Family Medical History / Comment(s): colon cancer Brother(s) Family Medical History: Cancer Additional Family Medical History / Comment(s): colon cancer Mother Family Medical History: Asthma Medications and Allergies Home Medications Medication Instructions Recorded Confirmed Type Cilostazol [Pletal] 50 mg PO BID 09/02/18 09/02/18 History Citalopram Hydrobromide [CeleXA] 20 mg PO DAILY 09/02/18 09/02/18 History Donepezil [Aricept] 10 mg PO HS 09/02/18 09/02/18 History EPINEPHrine [Epipen 2-Ok] 0.3 mg IM ONCE PRN 09/02/18 09/02/18 History Furosemide [Lasix] 20 mg PO DAILY 09/02/18 09/02/18 History Levothyroxine Sodium [Synthroid] 25 mcg PO DAILY 09/02/18 09/02/18 History Losartan [Cozaar] 25 mg PO DAILY 09/02/18 09/02/18 History Allergies Allergy/AdvReac Type Severity Reaction Status Date / Time atorvastatin [From Lipitor] Allergy Unknown Verified 09/02/18 09:26 lisinopril Allergy Unknown Verified 09/02/18 09:26 Physical Exam Vitals: Vital Signs Temp Pulse Resp BP Pulse Ox 09/02/18 11:39 98 09/02/18 11:30 102 H 26 H 88/63 97 09/02/18 11:15 105 H 10 L 86/54 96 09/02/18 11:00 105 H 26 H 101/68 97 09/02/18 10:45 98 17 100/66 97 09/02/18 10:30 106 H 27 H 89/58 96 09/02/18 10:15 105 H 24 94/56 99 09/02/18 10:00 101 H 24 101/61 99 09/02/18 09:46 93 F L 05/02/19 09:45 101 H 24 105/62 99 09/02/18 09:30 105 H 17 105/55 99 09/02/18 09:15 98 25 H 106/61 99 09/02/18 09:00 106 H 25 H 108/64 99 09/02/18 08:45 115 H 25 H 114/81 99 09/02/18 08:30 115 H 29 H 116/72 99 09/02/18 08:15 111 H 28 H 124/65 99 09/02/18 08:00 99.1 F 108 H 28 H 122/46 99 09/02/18 07:45 115 H 28 H 119/38 99 09/02/18 07:30 98 29 H 111/57 99 09/02/18 07:15 99 25 H 99/67 99 09/02/18 07:08 101 H 09/02/18 07:00 104 H 24 100/47 99 09/02/18 06:45 116 H 25 H 107/74 98 09/02/18 06:30 115 H 24 86/33 97 09/02/18 06:15 103 H 28 H 88/52 97 09/02/18 06:02 104 H 17 91/42 98 09/02/18 02:35 89/52 98 09/02/18 02:30 82 16 87/53 98 09/02/18 02:25 81 19 89/53 99 09/02/18 02:20 80 21 92/57 99 09/02/18 02:15 80 18 97/57 99 09/02/18 02:10 107 H 20 99/64 99 09/02/18 02:05 81 21 112/65 100 09/02/18 02:00 92 19 108/55 100 09/02/18 01:55 80 19 112/55 100 09/02/18 01:50 81 19 113/56 100 09/02/18 01:45 81 19 106/56 100 09/02/18 01:40 84 19 111/66 100 09/02/18 01:35 79 20 107/61 100 09/02/18 01:30 79 20 106/58 100 09/02/18 01:25 77 19 115/57 100 09/02/18 01:20 78 19 110/47 99 09/02/18 01:15 75 19 104/54 99 09/02/18 01:10 79 19 102/54 99 05/02/19 01:05 78 19 92/64 99 09/02/18 01:00 83 19 90/51 98 09/02/18 00:55 84 19 87/45 99 09/02/18 00:50 78 19 72/42 09/02/18 00:45 80 19 70/42 09/02/18 00:40 80 19 67/41 09/02/18 00:35 78 19 66/35 09/02/18 00:30 71 19 55/41 09/02/18 00:25 63 19 57/44 09/02/18 00:20 70 19 59/39 09/02/18 00:15 71 19 60/43 09/02/18 00:10 19 60/43 09/02/18 00:05 69 15 60/43 09/02/18 00:03 19 09/02/18 00:00 69 17 69/41 09/01/18 23:55 68 16 69/41 09/01/18 23:50 68 16 69/41 09/01/18 23:45 67 15 70/46 09/01/18 23:40 66 14 70/46 09/01/18 23:35 65 14 76/43 09/01/18 23:32 64 13 76/43 85 L 09/01/18 23:30 64 14 81/49 09/01/18 23:25 64 14 81/49 09/01/18 23:20 65 14 81/49 09/01/18 23:15 64 14 91/41 09/01/18 23:10 68 14 91/41 09/01/18 23:05 63 15 91/41 09/01/18 23:00 92 14 86/59 09/01/18 22:55 65 14 09/01/18 22:50 65 14 09/01/18 22:45 66 14 87/47 09/01/18 22:40 66 14 87/47 85 L 09/01/18 22:35 67 14 87/47 09/01/18 22:30 68 14 85/72 09/01/18 22:26 85/72 09/01/18 22:23 67 19 87/47 85 L Intake and Output 09/01/18 09/02/18 09/02/18 22:59 06:59 14:59 Intake Total 9340.560 2161 Output Total 460 15 Balance 418.497 9371 Intake: IV 1000 1300 0.9 600 600 Bicarb 400 700 Intake, IV Titration 1.241 Amount Norepinephrine 32 mg In 1.241 Sodium Chloride 0.9% 218 ml @ 0.05 MCG/KG/MIN 1. 488 mls/hr IV .Q24H [facility] Rx#:[id number] Lipid 150 0.9 150 Output: Gastric Drainage 200 Urine 260 15 Other: Voiding Method Indwelling Catheter Weight 63.503 kg Results - Lab Results Most recent lab results ABG pH 7.12 (7.35-7.45) L* 09/02/18 04:43 ABG pCO2 25 mmHg (35-45) L 09/02/18 04:43 ABG pO2 181 mmHg (83-108) H 09/02/18 04:43 ABG HCO3 8 mmol/L (21-25) L* 09/02/18 04:43 ABG O2 Saturation 98.9 % (94-97) H 09/02/18 04:43 Calcium 8.6 mg/dL (8.4-10.2) 09/02/18 04:00 Phosphorus 10.7 mg/dL (2.5-4.5) H* 09/02/18 04:00 Magnesium 3.0 mg/dL (1.6-2.3) H 09/02/18 04:00 09/02/18 04:00 09/02/18 04:00 Assessment and Plan Plan: Assessment: 1. Oliguric acute kidney injury secondary to ATN secondary to septic shock. Creatinine was 16 on admission and is 14.47 today. 2. Hyperkalemia secondary to acute kidney injury and metabolic acidosis. Patient was also maintained on Cozaar outpatient. 3. Metabolic acidosis secondary to acute kidney injury and lactic acidosis. 4. Moderate left and mild right-sided hydronephrosis noted on renal ultrasound. 5. Left lower extremity DVT. 6. Septic shock maintained on vasopressors. Potential source urine. Also has a coccyx ulcer. 7. Hypernatremia secondary to lack of oral water intake. 8. Hyperphosphatemia secondary to acute kidney injury. Plan: Maintain isotonic sodium bicarbonate drip to be run at 150 mL an hour. Discontinue normal saline. Follow-up cultures. Due to oliguria, severe metabolic acidosis, and electrolyte imbalance, I will initiate renal replacement therapy. Patient is currently on vasopressors so I will do SLED as he is able to tolerate. This was discussed with the family members present in the room. They are agreeable. Consult vascular surgery for dialysis catheter placement. Consult urology for the hydronephrosis. Thank you for the consultation. I will continue to follow the patient with you during his hospital stay.
[2018-09-02] MEDS: SODIUM CHLORIDE 0.9% 1,000 ML IV SCH ×2 (13:00→14:26)
[2018-09-02] MEDS ORDERED: SODIUM CHLORIDE 0.9% 150 ML with VASOPRESSIN 60 UNIT IV SCH ×2 (13:15)
[2018-09-02] MEDS ORDERED: SODIUM CHLORIDE 0.9% 50 ML with VASOPRESSIN 20 UNIT IVPB SCH ×2 (13:30)
[2018-09-02 14:42] LABS: ABG Base Excess -23.4 mmol/L; ABG Oxygen Saturation 98.4 % (94-97); ABG PO2 148 mmHg (83-108); ABG TCO2 7 mmol/L (19-24)
[2018-09-02 14:46] LABS: ABG HCO3 6 mmol/L (21-25); ABG PCO2 19 mmHg (35-45); ABG PH 7.11 (7.35-7.45)
[2018-09-02 14:52] LABS: Glucose,Whole Blood 226 mg/dL (75-99)
--- NOTE | 2018-09-02 16:17 | P.CNPUL ---
<Louise Valiente M - Last Filed: 09/02/18 15:46> History of Present Illness Consult date: 09/02/18 Requesting physician: Juan Diego Wallis Reason for consult: other Chief complaint: Septic shock History of present illness: This 83-year-old white male patient who follows with Christiana DURANT from the [facility] in the [place], with past medical history of diabetes mellitus, hyperlipidemia, hypertension, advanced dementia, hearing difficulty, nicotine dependence, in remission, with pretty poor baseline functional performance. Patient resides with his daughter at his home, and requires extensive assistance with all ADLs, including feeding, bathing, going to the bathroom. Patient is normally able to stand with 2 people assist, but has not been able to ambulate, and in the last 2 weeks patient has been progressively weak, had poor appetite. Patient's daughter denied any fevers, and no complaints of shortness of breath, or pain. Patient has pretty advanced dementia, and normally verbalizes very little, however he had made statements about "letting him go" to other family members. Apparently yesterday on 09/01/2018 patient's daughter to wake up the patient for dinner at 5 PM in the evening, and patient was very short of breath, gasping for air, he felt cold and clammy, and she called 911. He was taken to the hospital in [place], patient was intubated there. Patient was hypotensive, hypothermic, unresponsive and hypoxemic. Patient was then transferred to [facility] for further management, and blood work showed him white blood cell count of 22.0, hemoglobin of 9.0, INR was 1.3, blood gas was quite poor, consistent with severe metabolic acidosis with pO2 of 400, pCO2 of 25, and pH of less than 7.0, his was done on FiO2 of 100%, there were multiple electrolyte abnormalities, and renal profile was consistent with acute kidney injury, with BUN of 198, and creatinine of 16.02, serum sodium was 150, potassium 6.2, chloride was 120, CO2 is less than 5, anion gap was elevated over 25, LFTs were elevated, troponin was positive at 0.072, lactic acid was elevated at 13.4, patient was oliguric, urinalysis showed many red blood cells and white blood cells and bacteria. Patient is quite thin and cachectic, he also has a large unstageable wound on his sacrum, with a necrotic center over the coccyx, and surrounding deep tissue injury, that is non-blanchable. Patient was fluid resuscitated with 3 L of 0.9 normal saline, and he is currently on Levophed at 50 mics per minute, and vasopressin has been started at physiologic dose at 0.03 units per hour. Remains in anuric, nephrology has been consulted, and patient is scheduled for emergent temporary hemodialysis catheter insertion, and hemodialysis will be initiated. In the meantime broad-spectrum antibiotics were started patient is on Levaquin, Zosyn and vancomycin, blood urine and sputum cultures have been sent and are pending at this time, we'll collect of wound culture as well. Patient remains intubated on mechanical ventilator, and current vent settings are assist-control mode of ventilation with a rate of 19, tidal volume of 500, FiO2 of 40% and PEEP of 5. Most recent blood gases showed pO2 of 148, pCO2 of 19, and pH of 7.11, and this was done on FiO2 of 40%, maintenance IV fluids are D5 W with 3 A of bicarb at a rate of 100 ML per hour, and patient has been given 2 A of sodium bicarb in the emergency department. We had a lengthy conversation with the patient's daughter, and the patient's daughter realizes the gravity of his condition. Review of Systems All systems: negative Constitutional: Reports poor appetite, Reports weakness, Reports weight loss, Denies chills, Denies fever Eyes: denies blurred vision, denies pain Ears, nose, mouth and throat: Denies headache, Denies sore throat Cardiovascular: Denies chest pain, Denies shortness of breath Respiratory: Denies cough Gastrointestinal: Denies abdominal pain, Denies diarrhea, Denies nausea, Denies vomiting Musculoskeletal: Denies myalgias Integumentary: Denies pruritus, Denies rash Neurological: Reports balance difficulties, Reports change in mentation, Reports gait dysfunction, Reports weakness, Denies numbness Psychiatric: Denies anxiety, Denies depression Endocrine: Denies fatigue, Denies weight change Past Medical History Past Medical History: Diabetes Mellitus, Hearing Disorder / Deafness, Hyperlipidemia, Hypertension, Memory Impairment Additional Past Medical History / Comment(s): ruptured tendons rt ring and pinky fingers(has sx), peptic ulcer 2011, "in past made mention of ra", "dizzy spells and headaches" History of Any Multi-Drug Resistant Organisms: None Reported Past Surgical History: Tonsillectomy Additional Past Surgical History / Comment(s): carpal tunnel, rt hand ring and pinky fingers tendon repair, margarito cataracts,colonoscopy, hernia repair, skin gra ft lt leg d/t industrial accident. Past Psychological History: No Psychological Hx Reported Additional Psychological History / Comment(s): pt's 4 years ago. pt lives with daughter yogi in home that has 4 steps into home. uses a cane or walker as needed. has 1 pet bird. Pt served in the [employer] in the past. 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 Smoking Status: Former smoker Past Alcohol Use History: None Reported Past Drug Use History: None Reported - Past Family History Father Family Medical History: Cancer Additional Family Medical History / Comment(s): colon cancer Brother(s) Family Medical History: Cancer Additional Family Medical History / Comment(s): colon cancer Mother Family Medical History: Asthma Medications and Allergies Home Medications Medication Instructions Recorded Confirmed Type Cilostazol [Pletal] 50 mg PO BID 09/02/18 09/02/18 History Citalopram Hydrobromide [CeleXA] 20 mg PO DAILY 09/02/18 09/02/18 History Donepezil [Aricept] 10 mg PO HS 09/02/18 09/02/18 History EPINEPHrine [Epipen 2-Ok] 0.3 mg IM ONCE PRN 09/02/18 09/02/18 History Furosemide [Lasix] 20 mg PO DAILY 09/02/18 09/02/18 History Levothyroxine Sodium [Synthroid] 25 mcg PO DAILY 09/02/18 09/02/18 History Losartan [Cozaar] 25 mg PO DAILY 09/02/18 09/02/18 History Allergies Allergy/AdvReac Type Severity Reaction Status Date / Time atorvastatin [From Lipitor] Allergy Unknown Verified 09/02/18 09:26 lisinopril Allergy Unknown Verified 09/02/18 09:26 Physical Exam Vitals: Vital Signs Temp Pulse Resp BP Pulse Ox 09/02/18 15:44 106 H 09/02/18 15:31 96 09/02/18 14:00 97.7 F 114 H 25 H 92 L 09/02/18 13:45 105 H 26 H 137/56 09/02/18 13:30 105 H 25 H 0/0 09/02/18 13:15 101 H 25 H 90/43 09/02/18 13:00 106 H 21 55/31 96 09/02/18 12:45 102 H 25 H 84/29 09/02/18 12:30 100 26 H 82/54 09/02/18 12:15 125 H 27 H 48/37 98 09/02/18 12:00 97.7 F 101 H 24 74/56 97 09/02/18 11:45 99 20 94/60 98 09/02/18 11:39 98 09/02/18 11:30 102 H 26 H 88/63 97 09/02/18 11:15 105 H 10 L 86/54 96 09/02/18 11:00 105 H 26 H 101/68 97 09/02/18 10:45 98 17 100/66 97 09/02/18 10:30 106 H 27 H 89/58 96 09/02/18 10:15 105 H 24 94/56 99 09/02/18 10:00 101 H 24 101/61 99 09/02/18 09:46 93 F L 09/02/18 09:45 101 H 24 105/62 99 09/02/18 09:30 105 H 17 105/55 99 09/02/18 09:15 98 25 H 106/61 99 09/02/18 09:00 106 H 25 H 108/64 99 09/02/18 08:45 115 H 25 H 114/81 99 09/02/18 08:30 115 H 29 H 116/72 99 09/02/18 08:15 111 H 28 H 124/65 99 09/02/18 08:00 99.1 F 108 H 28 H 122/46 99 09/02/18 07:45 115 H 28 H 119/38 99 09/02/18 07:30 98 29 H 111/57 99 09/02/18 07:15 99 25 H 99/67 99 09/02/18 07:08 101 H 09/02/18 07:00 104 H 24 100/47 99 09/02/18 06:45 116 H 25 H 107/74 98 09/02/18 06:30 115 H 24 86/33 97 09/02/18 06:15 103 H 28 H 88/52 97 0502 06:02 104 H 17 91/42 98 05 02:35 89/52 98 09/02/18 02:30 82 16 87/53 98 09/02/18 02:25 81 19 89/53 99 09/02/18 02:20 80 21 92/57 99 02 02:15 80 18 97/57 99 09/02/18 02:10 107 H 20 99/64 99 05 02:05 81 21 112/65 100 09/02/18 02:00 92 19 108/55 100 05 01:55 80 19 112/55 100 09/02/18 01:50 81 19 113/56 100 09/02/18 01:45 81 19 106/56 100 09/02/18 01:40 84 19 111/66 100 09/02/18 01:35 79 20 107/61 100 09/02/18 01:30 79 20 106/58 100 09/02/18 01:25 77 19 115/57 100 09/02/18 01:20 78 19 110/47 99 09/02/18 01:15 75 19 104/54 99 02 01:10 79 19 102/54 99 09/02/18 01:05 78 19 92/64 99 09/02/18 01:00 83 19 90/51 98 09/02/18 00:55 84 19 87/45 99 09/02/18 00:50 78 19 72/42 0502 00:45 80 19 70/42 0502 00:40 80 19 67/41 05/02 00:35 78 19 66/35 0502 00:30 71 19 55/41 05/02 00:25 63 19 57/44 05/02 00:20 70 19 59/39 05/02 00:15 71 19 60/43 0502 00:10 19 60/43 0502 00:05 69 15 60/43 05 00:03 19 09/02/18 00:00 69 17 69/41 05/19 23:55 68 16 69/41 05/05/22 23:50 68 16 69/41 05/05/22 23:45 67 15 70/46 09/01/18 23:40 66 14 70/46 09/01/18 23:35 65 14 76/43 09/01/18 23:32 64 13 76/43 85 L 09/01/18 23:30 64 14 81/49 09/01/18 23:25 64 14 81/49 09/01/18 23:20 65 14 81/49 09/01/18 23:15 64 14 /41 09/01/18 23:10 68 14 91/41 09/01/18 23:05 63 15 91/41 09/01/18 23:00 92 14 86/59 09/01/18 22:55 65 14 09/01/18 22:50 65 14 09/01/18 22:45 66 14 87/47 09/01/18 22:40 66 14 87/47 85 L 09/01/18 22:35 67 14 87/47 09/01/18 22:30 68 14 85/72 09/01/18 22:26 85/72 09/01/18 22:23 67 19 87/47 85 L Intake and Output 09/02/18 09/02/18 09/02/18 06:59 14:59 22:59 Intake Total 0844.389 7750.522 Output Total 460 15 Balance 949.397 8874.522 Intake: IV 1000 1300 0.9 600 600 Bicarb 400 700 Intake, IV Titration 1.241 112.522 Amount Norepinephrine 32 mg In 1.241 112.522 Sodium Chloride 0.9% 218 ml @ 0.05 MCG/KG/MIN 1. 488 mls/hr IV .Q24H [facility] Rx#:[id number] Lipid 150 0.9 150 Output: Gastric Drainage 200 Urine 260 15 Other: Voiding Method Indwelling Catheter ABP, PAP, CO, CI - Last 8 Hours Arterial Blood Pressure 84/62 GENERAL EXAM: Sedated, intubated 83-year-old cachectic and frail looking 83-year-old white male comfortable in no apparent distress. Patient has a warming blanket on him HEAD: Normocephalic/atraumatic. EYES: Normal reaction of pupils, equal size. Conjunctiva pink, sclera white. NOSE: Clear with pink turbinates. THROAT: No erythema or exudates. NECK: No masses, no JVD, no thyroid enlargement, no adenopathy. CHEST: No chest wall deformity. Symmetrical expansion. LUNGS: Equal air entry with no crackles, wheeze, rhonchi or dullness. CVS: Regular rate and rhythm, normal S1 and S2, no gallops, no murmurs, no rubs ABDOMEN: Soft, nontender. No hepatosplenomegaly, normal bowel sounds, no guarding or rigidity. EXTREMITIES: No clubbing, no edema, no cyanosis, 2+ pulses and upper and lower extremities. MUSCULOSKELETAL: Muscle strength and tone normal. Swelling noted in the left leg. SPINE: No scoliosis or deformity SKIN: No rashes CENTRAL NERVOUS SYSTEM: Sedated, intubated Results - Laboratory Findings CBC and BMP: 09/02/18 04:00 09/02/18 04:00 ABG ABG pH 7.11 (7.35-7.45) L* 09/02/18 14:35 ABG pCO2 19 mmHg (35-45) L* 09/02/18 14:35 ABG pO2 148 mmHg (83-108) H 09/02/18 14:35 ABG O2 Saturation 98.4 % (94-97) H 09/02/18 14:35 PT/INR, D-dimer PT 13.4 sec (9.0-12.0) H 09/02/18 04:00 INR 1.3 (<1.2) H 09/02/18 04:00 Abnormal lab findings: Abnormal Labs 09/01/18 09/01/18 09/01/18 22:45 23:20 23:20 WBC 22.0 H RBC 2.85 L Hgb 9.0 L Hct 32.1 L MCV 112.8 H MCHC 28.1 L Neutrophils # (Manual) 18.40 H Lymphocytes # (Manual) Basophils # (Manual) 0.22 H Metamyelocytes # (Man) 0.44 H PT INR APTT ABG pH ABG pCO2 ABG pO2 ABG HCO3 ABG Total CO2 ABG O2 Saturation Sodium 150 H Potassium 6.2 H* Chloride 120 H Carbon Dioxide <5 L* BUN 198 H* Creatinine 16.02 H* Glucose 301 H POC Glucose (mg/dL) 338 H Plasma Lactic Acid Danis Phosphorus 12.4 H* Magnesium 3.4 H AST 326 H ALT 118 H Alkaline Phosphatase 176 H Troponin I Total Protein 5.2 L Albumin 2.2 L Lipase TSH 15.900 H Urine RBC Urine WBC Urine WBC Clumps Urine Bacteria 09/01/18 09/01/18 09/01/18 23:20 23:20 23:20 WBC RBC Hgb Hct MCV MCHC Neutrophils # (Manual) Lymphocytes # (Manual) Basophils # (Manual) Metamyelocytes # (Man) PT 13.3 H INR 1.3 H APTT 34.1 H ABG pH ABG pCO2 ABG pO2 ABG HCO3 ABG Total CO2 ABG O2 Saturation Sodium Potassium Chloride Carbon Dioxide BUN Creatinine Glucose POC Glucose (mg/dL) Plasma Lactic Acid Danis 13.4 H* Phosphorus Magnesium AST ALT Alkaline Phosphatase Troponin I 0.072 H* Total Protein Albumin Lipase TSH Urine RBC Urine WBC Urine WBC Clumps Urine Bacteria 09/01/18 09/02/18 09/02/18 23:23 02:27 04:00 WBC RBC Hgb Hct MCV MCHC Neutrophils # (Manual) Lymphocytes # (Manual) Basophils # (Manual) Metamyelocytes # (Man) PT INR APTT ABG pH <7.00 L* ABG pCO2 25 L ABG pO2 >400 H ABG HCO3 4 L* ABG Total CO2 5 L ABG O2 Saturation 99.2 H Sodium 149 H Potassium 5.7 H Chloride 115 H Carbon Dioxide 9 L* BUN 194 H* Creatinine 14.47 H* Glucose 293 H POC Glucose (mg/dL) 311 H Plasma Lactic Acid Danis Phosphorus 10.7 H* Magnesium 3.0 H AST 528 H ALT 173 H Alkaline Phosphatase 211 H Troponin I Total Protein 5.2 L Albumin 2.2 L Lipase 1927 H TSH Urine RBC Urine WBC Urine WBC Clumps Urine Bacteria 09/02/18 09/02/18 09/02/18 04:00 04:00 04:00 WBC 17.3 H RBC 3.03 L Hgb 9.6 L Hct 32.7 L MCV 107.9 H MCHC 29.5 L Neutrophils # (Manual) 16.70 H Lymphocytes # (Manual) 0.35 L Basophils # (Manual) Metamyelocytes # (Man) 0.17 H PT 13.4 H INR 1.3 H APTT 38.3 H ABG pH ABG pCO2 ABG pO2 ABG HCO3 ABG Total CO2 ABG O2 Saturation Sodium Potassium Chloride Carbon Dioxide BUN Creatinine Glucose POC Glucose (mg/dL) Plasma Lactic Acid Danis 11.9 H* Phosphorus Magnesium AST ALT Alkaline Phosphatase Troponin I Total Protein Albumin Lipase TSH Urine RBC Urine WBC Urine WBC Clumps Urine Bacteria 09/02/18 09/02/18 09/02/18 04:43 07:09 10:40 WBC RBC Hgb Hct MCV MCHC Neutrophils # (Manual) Lymphocytes # (Manual) Basophils # (Manual) Metamyelocytes # (Man) PT INR APTT ABG pH 7.12 L* ABG pCO2 25 L ABG pO2 181 H ABG HCO3 8 L* ABG Total CO2 9 L ABG O2 Saturation 98.9 H Sodium Potassium Chloride Carbon Dioxide BUN Creatinine Glucose POC Glucose (mg/dL) 309 H Plasma Lactic Acid Danis Phosphorus Magnesium AST ALT Alkaline Phosphatase Troponin I Total Protein Albumin Lipase TSH Urine RBC >182 H Urine WBC >182 H Urine WBC Clumps Many H Urine Bacteria Many H 09/02/18 09/02/18 14:28 14:35 WBC RBC Hgb Hct MCV MCHC Neutrophils # (Manual) Lymphocytes # (Manual) Basophils # (Manual) Metamyelocytes # (Man) PT INR APTT ABG pH 7.11 L* ABG pCO2 19 L* ABG pO2 148 H ABG HCO3 6 L* ABG Total CO2 7 L ABG O2 Saturation 98.4 H Sodium Potassium Chloride Carbon Dioxide BUN Creatinine Glucose POC Glucose (mg/dL) 226 H Plasma Lactic Acid Danis Phosphorus Magnesium AST ALT Alkaline Phosphatase Troponin I Total Protein Albumin Lipase TSH Urine RBC Urine WBC Urine WBC Clumps Urine Bacteria - Diagnostic Findings Chest x-ray: report reviewed, image reviewed Additional studies: Abdominal ultrasound Assessment and Plan Plan: Assessment: #1. Septic shock likely related to urinary tract infection. Urinalysis was suggestive of a UTI,another of the possibility could include a large sacral wound. Chest x-ray was without any consolidation or pleural effusion. No focal infiltrates. #2. Acute kidney injury related to ATN #3. Anion gap metabolic acidosis related to sepsis and septic shock #4. Severe metabolic acidosis related to acute kidney injury #5. Hypernatremia, related to dehydration #6. Hyperkalemia, due to a [place] #7. Abnormal liver transaminases, elevated lipase, hemodynamically related to hypoperfusion. Gallbladder ultrasound showed no evidence of stones #8. Bilateral renal hydronephrosis, urology has been consulted #9. Elevated troponin #10. Dementia #11. Poor baseline functional performance, patient is non-ambulatory for the most part, requires extensive assistance with all ADLs including feeding bathing and toileting #12. Large sacral wound, unstageable, present on admission #13. Chronic kidney disease #14. History of left leg DVT, and lower extremity Doppler of the left leg was positive for DVT #15. Diabetes mellitus #16. Hypertension #17. Hyperlipidemia #18. Former smoker Plan: Patient has been fluid resuscitated, he is requiring high amounts of vasopressor support, including vasopressin, oliguric, urology has been consulted for bilateral hydronephrosis, nephrology is following, and patient will have urgent hemodialysis. Continue with the same vent settings, continue with current antibiotics, await the results of the final cultures, wound cultures have also been sent, overall prognosis is poor. We discussed his condition with the patient's daughter, who understands that patient is critically ill, and may not survive this illness. For now will continue with supportive care, he remains a DO NOT RESUSCITATE. Ultrasound of the gallbladder did not show any obstruction. Echocardiogram is pending. We will likely order anticoagulation once the emergent hemodialysis catheter has been placed. continue GI and DVT prophylaxis. Continue to follow I performed a history & physical examination of the patient and discussed their management with my nurse practitioner, Louise Valiente. I reviewed the nurse practitioner's note and agree with the documented findings and plan of care. Lung sounds are positive for clear diminished at the bases. The findings and the impression was discussed with the patient. I attest to the documentation by the nurse practitioner. Time with Patient: Greater than 30 <Annemarie Brar - Last Filed: 09/02/18 20:26> Physical Exam Vitals: Vital Signs Temp Pulse Resp BP Pulse Ox 09/02/18 19:24 116 H 09/02/18 19:08 116 H 09/02/18 19:00 121 H 26 H 94 L 09/02/18 18:45 115 H 25 H 81/50 09/02/18 18:30 118 H 26 H 09/02/18 18:15 106 H 20 09/02/18 18:00 108 H 27 H 96 09/02/18 17:45 106 H 25 H 09/02/18 17:30 105 H 23 09/02/18 17:15 103 H 24 91 L 09/02/18 17:00 102 H 25 H 90 L 09/02/18 16:45 103 H 25 H 99 09/02/18 16:30 101 H 24 99 09/02/18 16:15 90 24 98 09/02/18 16:00 96.6 F L 106 H 26 H 98 09/02/18 15:45 89 26 H 100 09/02/18 15:44 106 H 09/02/18 15:31 96 09/02/18 15:30 89 24 99 09/02/18 15:15 91 20 100 09/02/18 15:00 92 20 99 09/02/18 14:45 98 24 99 09/02/18 14:30 121 H 21 138/103 98 09/02/18 14:15 111 H 15 09/02/18 14:00 97.7 F 114 H 25 H 92 L 09/02/18 13:45 105 H 26 H 137/56 09/02/18 13:30 105 H 25 H 0/0 09/02/18 13:15 101 H 25 H 90/43 09/02/18 13:00 106 H 21 55/31 96 09/02/18 12:45 102 H 25 H 84/29 09/02/18 12:30 100 26 H 82/54 09/02/18 12:15 125 H 27 H 48/37 98 09/02/18 12:00 97.7 F 101 H 26 H 74/56 97 09/02/18 11:45 99 20 94/60 98 09/02/18 11:39 98 09/02/18 11:30 102 H 26 H 88/63 97 09/02/18 11:15 105 H 10 L 86/54 96 09/02/18 11:00 105 H 26 H 101/68 97 09/02/18 10:45 98 17 100/66 97 09/02/18 10:30 106 H 27 H 89/58 96 09/02/18 10:15 105 H 24 94/56 99 09/02/18 10:00 101 H 24 101/61 99 09/02/18 09:46 93 F L 09/02/18 09:45 101 H 24 105/62 99 09/02/18 09:30 105 H 17 105/55 99 09/02/18 09:15 98 25 H 106/61 99 09/02/18 09:00 106 H 25 H 108/64 99 09/02/18 08:45 115 H 25 H 114/81 99 09/02/18 08:30 115 H 29 H 116/72 99 09/02/18 08:15 111 H 28 H 124/65 99 09/02/18 08:00 99.1 F 108 H 26 H 122/46 99 09/02/18 07:45 115 H 28 H 119/38 99 09/02/18 07:30 98 29 H 111/57 99 09/02/18 07:15 99 25 H 99/67 99 09/02/18 07:08 101 H 09/02/18 07:00 104 H 24 100/47 99 09/02/18 06:45 116 H 25 H 107/74 98 09/02/18 06:30 115 H 24 86/33 97 09/02/18 06:15 103 H 28 H 88/52 97 09/02/18 06:02 104 H 17 91/42 98 09/02/18 02:35 89/52 98 09/02/18 02:30 82 16 87/53 98 09/02/18 02:25 81 19 89/53 99 09/02/18 02:20 80 21 92/57 99 09/02/18 02:15 80 18 97/57 99 09/02/18 02:10 107 H 20 99/64 99 09/02/18 02:05 81 21 112/65 100 09/02/18 02:00 92 19 108/55 100 09/02/18 01:55 80 19 112/55 100 09/02/18 01:50 81 19 113/56 100 09/02/18 01:45 81 19 106/56 100 09/02/18 01:40 84 19 111/66 100 09/02/18 01:35 79 20 107/61 100 09/02/18 01:30 79 20 106/58 100 09/02/18 01:25 77 19 115/57 100 02 01:20 78 19 110/47 99 09/02/18 01:15 75 19 104/54 99 09/02/18 01:10 79 19 102/54 99 09/02/18 01:05 78 19 92/64 99 09/02/18 01:00 83 19 90/51 98 09/02/18 00:55 84 19 87/45 99 09/02/18 00:50 78 19 72/42 09/02/18 00:45 80 19 70/42 09/02/18 00:40 80 19 67/41 09/02/18 00:35 78 19 66/35 09/02/18 00:30 71 19 55/41 09/02/18 00:25 63 19 57/44 09/02/18 00:20 70 19 59/39 09/02/18 00:15 71 19 60/43 09/02/18 00:10 19 60/43 09/02/18 00:05 69 15 60/43 09/02/18 00:03 19 09/02/18 00:00 69 17 69/41 09/01/18 23:55 68 16 69/41 09/01/18 23:50 68 16 69/41 09/01/18 23:45 67 15 70/46 09/01/18 23:40 66 14 70/46 09/01/18 23:35 65 14 76/43 09/01/18 23:32 64 13 76/43 85 L 09/01/18 23:30 64 14 81/49 09/01/18 23:25 64 14 81/49 09/01/18 23:20 65 14 81/49 09/01/18 23:15 64 14 91/41 09/01/18 23:10 68 14 91/41 09/01/18 23:05 63 15 91/41 09/01/18 23:00 92 14 86/59 09/01/18 22:55 65 14 09/01/18 22:50 65 14 09/01/18 22:45 66 14 87/47 09/01/18 22:40 66 14 87/47 85 L 09/01/18 22:35 67 14 87/47 09/01/18 22:30 68 14 85/72 09/01/18 22:26 85/72 09/01/18 22:23 67 19 87/47 85 L Intake and Output 09/02/18 09/02/18 09/02/18 06:59 14:59 22:59 Intake Total 4480.499 4469.022 463.5 Output Total 460 15 Balance 899.608 7960.022 463.5 Intake: IV 1000 5754.5 463.5 0.9 600 4600 Bicarb 400 1150 450 Sodium Chloride 0.9% 50 4.5 13.5 ml @ 0.03 UNITS/MIN 4.59 mls/hr IVPB .Q11H7M [facility] with Vasopressin 20 unit Rx#:[id number] Intake, IV Titration 1.241 112.522 Amount Norepinephrine 32 mg In 1.241 112.522 Sodium Chloride 0.9% 218 ml @ 0.05 MCG/KG/MIN 1. 488 mls/hr IV .Q24H [facility] Rx#:[id number] Lipid 150 0.9 150 Output: Gastric Drainage 200 Urine 260 15 Other: Voiding Method Indwelling Catheter Indwelling Catheter Indwelling Catheter ABP, PAP, CO, CI - Last 8 Hours Arterial Blood Pressure 76/50 Arterial Blood Pressure 75/47 Arterial Blood Pressure 84/48 Arterial Blood Pressure 87/47 Arterial Blood Pressure 86/46 Arterial Blood Pressure 90/49 Arterial Blood Pressure 86/47 Arterial Blood Pressure 89/49 Arterial Blood Pressure 93/48 Arterial Blood Pressure 87/45 Arterial Blood Pressure 99/46 Arterial Blood Pressure 103/48 Arterial Blood Pressure 101/47 Arterial Blood Pressure 100/45 Arterial Blood Pressure 109/49 Arterial Blood Pressure 112/49 Arterial Blood Pressure 111/49 Arterial Blood Pressure 94/51 Arterial Blood Pressure 102/55 Arterial Blood Pressure 106/56 Arterial Blood Pressure 84/62 Results - Laboratory Findings CBC and BMP: 09/02/18 17:34 09/02/18 15:39 ABG ABG pH 7.11 (7.35-7.45) L* 09/02/18 14:35 ABG pCO2 19 mmHg (35-45) L* 09/02/18 14:35 ABG pO2 148 mmHg (83-108) H 09/02/18 14:35 ABG O2 Saturation 98.4 % (94-97) H 09/02/18 14:35 PT/INR, D-dimer PT 16.2 sec (9.0-12.0) H 09/02/18 17:34 INR 1.6 (<1.2) H 09/02/18 17:34 Abnormal lab findings: Abnormal Labs 09/01/18 09/01/18 09/01/18 22:45 23:20 23:20 WBC 22.0 H RBC 2.85 L Hgb 9.0 L Hct 32.1 L MCV 112.8 H MCHC 28.1 L Plt Count Neutrophils # (Manual) 18.40 H Lymphocytes # (Manual) Basophils # (Manual) 0.22 H Metamyelocytes # (Man) 0.44 H Myelocytes # (Manual) PT INR APTT ABG pH ABG pCO2 ABG pO2 ABG HCO3 ABG Total CO2 ABG O2 Saturation Sodium 150 H Potassium 6.2 H* Chloride 120 H Carbon Dioxide <5 L* BUN 198 H* Creatinine 16.02 H* Glucose 301 H POC Glucose (mg/dL) 338 H Plasma Lactic Acid Danis Phosphorus 12.4 H* Magnesium 3.4 H AST 326 H ALT 118 H Alkaline Phosphatase 176 H Troponin I Total Protein 5.2 L Albumin 2.2 L Lipase TSH 15.900 H Urine RBC Urine WBC Urine WBC Clumps Urine Bacteria 09/01/18 09/01/18 09/01/18 23:20 23:20 23:20 WBC RBC Hgb Hct MCV MCHC Plt Count Neutrophils # (Manual) Lymphocytes # (Manual) Basophils # (Manual) Metamyelocytes # (Man) Myelocytes # (Manual) PT 13.3 H INR 1.3 H APTT 34.1 H ABG pH ABG pCO2 ABG pO2 ABG HCO3 ABG Total CO2 ABG O2 Saturation Sodium Potassium Chloride Carbon Dioxide BUN Creatinine Glucose POC Glucose (mg/dL) Plasma Lactic Acid Danis 13.4 H* Phosphorus Magnesium AST ALT Alkaline Phosphatase Troponin I 0.072 H* Total Protein Albumin Lipase TSH Urine RBC Urine WBC Urine WBC Clumps Urine Bacteria 09/01/18 09/02/18 09/02/18 23:23 02:27 04:00 WBC RBC Hgb Hct MCV MCHC Plt Count Neutrophils # (Manual) Lymphocytes # (Manual) Basophils # (Manual) Metamyelocytes # (Man) Myelocytes # (Manual) PT INR APTT ABG pH <7.00 L* ABG pCO2 25 L ABG pO2 >400 H ABG HCO3 4 L* ABG Total CO2 5 L ABG O2 Saturation 99.2 H Sodium 149 H Potassium 5.7 H Chloride 115 H Carbon Dioxide 9 L* BUN 194 H* Creatinine 14.47 H* Glucose 293 H POC Glucose (mg/dL) 311 H Plasma Lactic Acid Danis Phosphorus 10.7 H* Magnesium 3.0 H AST 528 H ALT 173 H Alkaline Phosphatase 211 H Troponin I Total Protein 5.2 L Albumin 2.2 L Lipase 1927 H TSH Urine RBC Urine WBC Urine WBC Clumps Urine Bacteria 05/02/19 05/02/19 05/02/19 04:00 04:00 04:00 WBC 17.3 H RBC 3.03 L Hgb 9.6 L Hct 32.7 L MCV 107.9 H MCHC 29.5 L Plt Count Neutrophils # (Manual) 16.70 H Lymphocytes # (Manual) 0.35 L Basophils # (Manual) Metamyelocytes # (Man) 0.17 H Myelocytes # (Manual) PT 13.4 H INR 1.3 H APTT 38.3 H ABG pH ABG pCO2 ABG pO2 ABG HCO3 ABG Total CO2 ABG O2 Saturation Sodium Potassium Chloride Carbon Dioxide BUN Creatinine Glucose POC Glucose (mg/dL) Plasma Lactic Acid Danis 11.9 H* Phosphorus Magnesium AST ALT Alkaline Phosphatase Troponin I Total Protein Albumin Lipase TSH Urine RBC Urine WBC Urine WBC Clumps Urine Bacteria 09/02/18 09/02/18 09/02/18 04:43 07:09 10:40 WBC RBC Hgb Hct MCV MCHC Plt Count Neutrophils # (Manual) Lymphocytes # (Manual) Basophils # (Manual) Metamyelocytes # (Man) Myelocytes # (Manual) PT INR APTT ABG pH 7.12 L* ABG pCO2 25 L ABG pO2 181 H ABG HCO3 8 L* ABG Total CO2 9 L ABG O2 Saturation 98.9 H Sodium Potassium Chloride Carbon Dioxide BUN Creatinine Glucose POC Glucose (mg/dL) 309 H Plasma Lactic Acid Danis Phosphorus Magnesium AST ALT Alkaline Phosphatase Troponin I Total Protein Albumin Lipase TSH Urine RBC >182 H Urine WBC >182 H Urine WBC Clumps Many H Urine Bacteria Many H 09/02/18 09/02/18 09/02/18 14:28 14:35 15:39 WBC RBC Hgb Hct MCV MCHC Plt Count Neutrophils # (Manual) Lymphocytes # (Manual) Basophils # (Manual) Metamyelocytes # (Man) Myelocytes # (Manual) PT INR APTT ABG pH 7.11 L* ABG pCO2 19 L* ABG pO2 148 H ABG HCO3 6 L* ABG Total CO2 7 L ABG O2 Saturation 98.4 H Sodium Potassium 5.7 H Chloride Carbon Dioxide BUN Creatinine Glucose POC Glucose (mg/dL) 226 H Plasma Lactic Acid Danis Phosphorus Magnesium AST ALT Alkaline Phosphatase Troponin I Total Protein Albumin Lipase TSH Urine RBC Urine WBC Urine WBC Clumps Urine Bacteria 09/02/18 09/02/18 17:34 17:34 WBC 42.6 H RBC 2.75 L Hgb 8.7 L Hct 28.9 L MCV 105.1 H MCHC 30.1 L Plt Count 111 L Neutrophils # (Manual) 39.10 H Lymphocytes # (Manual) 0.85 L Basophils # (Manual) Metamyelocytes # (Man) 2.56 H Myelocytes # (Manual) 0.43 H PT 16.2 H INR 1.6 H APTT 53.7 H ABG pH ABG pCO2 ABG pO2 ABG HCO3 ABG Total CO2 ABG O2 Saturation Sodium Potassium Chloride Carbon Dioxide BUN Creatinine Glucose POC Glucose (mg/dL) Plasma Lactic Acid Danis Phosphorus Magnesium AST ALT Alkaline Phosphatase Troponin I Total Protein Albumin Lipase TSH Urine RBC Urine WBC Urine WBC Clumps Urine Bacteria Assessment and Plan Plan: The joint evaluation that was done along with the nurse practitioner. This is a critically ill 83-year-old male patient was brought into the intensive care unit this morning. The patient was in septic shock and multisystem organ failure. The patient was in severe metabolic acidosis. The patient was in acute kidney injury, hypotensive requiring high doses of pressors and the patient was also in respiratory failure requiring intubation mechanical ventilation. The patient has a large unstageable sacral decub ulceration. Upon further inquiry, the patient's health has been progressively declining in over the past 2 weeks he was eating minimally and he was unable to get out of bed and ambulate. On few occasions has expressed wishes to his daughter to let go meaning . The patient is being aggressively resuscitated with IV fluids. The patient was placed on a bicarb drip. The patient was covered with speculum antibiotics. As part of further investigation, the patient was found to have a left lower extremity DVT and furthermore ultrasound the kidneys showed bilateral hydronephrosis. Consultants urology and upon revision of previous CAT scan of the abdomen, there is a concern of retroperitoneal lymphadenopathy consistent with lymphoma is very much likely in the patient's has progressed in his lymphadenopathy causing bilateral ureteral obstruction with secondary hydronephrosis. The patient has a Shipman catheter in place and it produced any urine output.. He remains on high-dose pressors and vasopressin was added to complement the effect of norepinephrine. He is becoming more cyanotic and the digits are ischemic specially his fingers bilaterally due to hypotension and high doses of pressors. Unfortunately, this patient carries a very poor prognosis. Discussed the case with various consultants including nephrology and urology. We will further discussed the case with the family. He has been switched to a no CPR CODE STATUS. He was receiving full support including fluids, pressors and antibiotics. The possibility of ureteral stent insertion will be discussed with the family. The possibility of dialysis discussed with the family although I'm not sure the patient will be able to handle her dialysis. We'll continue resuscitation for now pending further discussion with the family. Unfortunately carries a very high mortality secondary to sepsis, shock, multisystem organ failure. Further recommendations to follow following our discussion.
--- NOTE | 2018-09-02 16:24 | ECHOF ---
Referral Reason:hypotension MEASUREMENTS -------- HEIGHT: 170.2 cm WEIGHT: 63.5 kg BP: 105/55 IVSd: 0.9 cm (0.6 - 1.1) LVIDd: 2.8 cm (3.9 - 5.3) LVPWd: 1.0 cm (0.6 - 1.1) IVSs: 1.4 cm LVIDs: 2.0 cm LVPWs: 1.5 cm LA Diam: 3.1 cm (2.7 - 3.8) RVIDd: 3.0 cm (< 3.3) Ao Diam: 3.1 cm (2.0 - 3.7) AV Cusp: 1.6 cm (1.5 - 2.6) EPSS: 1.0 cm MV E Kali: 0.51 m/s MV DecT: 113 ms MV A Kali: 0.49 m/s MV E/A Ratio: 1.06 RAP: 5.00 mmHg RVSP: 54.28 mmHg MV EF SLOPE: 55.98 mm/s (70 - 150) MV EXCURSION: 15.27 mm (> 18.000) FINDINGS -------- This was a technically difficult study with suboptimal views. The left ventricular size is normal. Left ventricular wall thickness is normal. Overall left vent ricular systolic function is mildly impaired with, an EF between 45 - 50 %. The right ventricle is normal in size. The left atrial size is normal. The right atrium is normal in size. The aortic valve is trileaflet and appears structurally normal. The mitral valve leaflets are mildly thickened. Mild tricuspid regurgitation present. There is moderate pulmonary hypertension. The right ventric ular systolic pressure, as measured by Doppler, is 54.28mmHg. The pulmonic valve was not well visualized. The aortic root size is normal. Normal inferior vena cava with normal inspiratory collapse consistent with estimated right atrial pre ssure of 5 mmHg. There is no pericardial effusion. CONCLUSIONS -------- 1. This was a technically difficult study with suboptimal views. 2. The left ventricular size is normal. 3. Left ventricular wall thickness is normal. 4. Overall left ventricular systolic function is mildly impaired with, an EF between 45 - 50 %. 5. The right ventricle is normal in size. 6. The left atrial size is normal. 7. The right atrium is normal in size. 8. The aortic valve is trileaflet and appears structurally normal. 9. The mitral valve leaflets are mildly thickened. 10. Mild tricuspid regurgitation present. 11. There is moderate pulmonary hypertension. 12. The right ventricular systolic pressure, as measured by Doppler, is 54.28mmHg. 13. The pulmonic valve was not well visualized. 14. The aortic root size is normal. 15. Normal inferior vena cava with normal inspiratory collapse consistent with estimated right atrial pressure of 5 mmHg. 16. There is no pericardial effusion. VENDING MACHINE HOST/HOSTESS: Aundrea Krishnamurthy RDCS
[2018-09-02] MEDS ORDERED: HEPARIN SODIUM,PORCINE 5,000 UNIT/ML 1 ML VIAL IV PRN (17:14)
[2018-09-02] MEDS ORDERED: HEPARIN SODIUM,PORCINE 5,000 UNIT/ML 1 ML VIAL IV ONE (17:14)
[2018-09-02] MEDS ORDERED: HEPARIN SOD,PORK IN 0.45% NACL 25,000 UNIT in 0.45% NACL 1 250ML.BAG IV SCH (17:15)
[2018-09-02 18:17] LABS: INR 1.6 (<1.2); Partial Thromboplastin Time 53.7 sec (22.0-30.0); Prothrombin Time 16.2 sec (9.0-12.0)
[2018-09-02 18:23] LABS: HCT 28.9 % (39.0-53.0); HGB 8.7 gm/dL (13.0-17.5); Hypochromasia Marked; MCH 31.7 pg (25.0-35.0); MCHC 30.1 g/dL (31.0-37.0); MCV 105.1 fL (80.0-100.0); Macrocytosis Moderate; Mean Platelet Volume 10.9; Platelet Count 111 k/uL (150-450); RBC 2.75 m/uL (4.30-5.90); RDW 14.9 % (11.5-15.5); WBC 42.6 k/uL (3.8-10.6)
[2018-09-02 18:51] LABS: Band Neutrophils % 36 %; Lymphocytes # (M) 0.85 k/uL (1.0-4.8); Metamyelocytes # (M) 2.56 k/uL (0); Metamyelocytes % 6 %; Monocytes # (M) 0.43 k/uL (0-1.0); Myelocytes # (M) 0.43 k/uL (0); Myelocytes % 1 %; Neutrophils % (M) 56 %; Nucleated Red Blood Cells 0 /100 WBC (0-0); Total Cells Counted 200
[2018-09-02 18:52] LABS: Toxic Granulation Present; Toxic Vacuolation Present
[2018-09-02 19:11] LABS: Hepatitis A Antibody IgM Non-Reactive (Non-Reactive); Hepatitis B Core IgM Non-Reactive (Non-Reactive)
[2018-09-02 20:51] VITALS: RESP 21; TEMP 99.8
[2018-09-02 21:00] LABS: Glucose,Whole Blood 187 mg/dL (75-99)
[2018-09-02] MEDS ORDERED: LEVOFLOXACIN 750MG-D5W PMX 750 MG in DEXTROSE/WATER 1 150ML.BAG IVPB SCH (23:29)
[2018-09-02 23:33] VITALS: BP 56/45; PULSE 77
[2018-09-03] MEDS ORDERED: VANCOMYCIN 1,250 MG in SODIUM CHLORIDE 0.9% 250 ML IVPB ONE (02:00)
--- NOTE | 2018-09-03 07:15 | P.DS ---
Providers Date of admission: 09/01/18 23:25 Attending physician: Angelika Rapp Consults: 09/01/18 23:24 Consult Physician Routine Consulting Provider: Annemarie Brar Consult Reason/Comments: icu Do you want consulting provider notified?: Yes Consult Physician Routine Consulting Provider: Abdi Razo Consult Reason/Comments: DIALYSIS Do you want consulting provider notified?: Yes Consult Physician Routine Consulting Provider: Katrin Blackburn Consult Reason/Comments: arf Do you want consulting provider notified?: Yes 09/02/18 10:35 Consult Physician Urgent Consulting Provider: Raymond Joseph Consult Reason/Comments: acute renal failure Do you want consulting provider notified?: Yes 09/02/18 18:46 Consult Physician Urgent Consulting Provider: Mario Byrd Consult Reason/Comments: hydropnephrosis Do you want consulting provider notified?: Yes Primary care physician: [facility] Course: Dx septic shock secondary to UTI and/or sacral wound Periods of unresponsiveness Acute hypoxic respiratory failure, status post intubation Acute renal failure Hyperkalemia High Lactic acid Metabolic acidosis Most likely History of advanced or end-stage dementia , at baseline Elevated liver enzymes Elevated troponin Diabetes mellitus Hypertension Hyperlipidemia Memory impairment Hospital course: This is an 83 years old male with baseline of advanced or end-stage dementia wh ere he cannot take care of himself and proximal only a few words and he could not recognize at least one of his daughters, and he cannot ask even before helped to feed him working himself, presents with septic shock secondary to UTI or sacral wound with several other medical problems, see H&P and pulmonary note for more details, patient was in the ICU needing high dose of norepinephrine and antibiotics, however patient on 09/02/2018. Family were at bedside and were aware of severity of illness. Being the patient's with end-stage dementia even if he survived this illness and infection he would be eligible for evaluation for hospice care. Plan - Discharge Summary Discharge Rx Participant: No New Discharge Prescriptions: No Action Levothyroxine Sodium [Synthroid] 25 mcg PO DAILY Citalopram Hydrobromide [CeleXA] 20 mg PO DAILY Cilostazol [Pletal] 50 mg PO BID Losartan [Cozaar] 25 mg PO DAILY Furosemide [Lasix] 20 mg PO DAILY EPINEPHrine [Epipen 2-Ok] 0.3 mg IM ONCE PRN PRN Reason: Anaphylaxis Donepezil [Aricept] 10 mg PO HS Discharge Medication List Cilostazol [Pletal] 50 mg PO BID 09/02/18 [History] Citalopram Hydrobromide [CeleXA] 20 mg PO DAILY 09/02/18 [History] Donepezil [Aricept] 10 mg PO HS 09/02/18 [History] EPINEPHrine [Epipen 2-Ok] 0.3 mg IM ONCE PRN 09/02/18 [History] Furosemide [Lasix] 20 mg PO DAILY 09/02/18 [History] Levothyroxine Sodium [Synthroid] 25 mcg PO DAILY 09/02/18 [History] Losartan [Cozaar] 25 mg PO DAILY 09/02/18 [History] Follow up Appointment(s)/Referral(s): None,Stated [REFERRING] - 1-2 days Discharge Disposition: - Preliminary Cause of Preliminary Cause of : septic shock
--- NOTE | 2018-09-03 08:35 | PCN ---
PROCEDURE NOTE PROCEDURE NOTE: Right radial arterial line insertion. Indications: Hemodynamic monitoring. A time-out was completed verifying correct patient, procedure, site, positioning, and implant(s) or special equipment if applicable. Colton's test was performed to ensure adequate perfusion. The patient's right wrist was prepped and draped in sterile fashion. 1% Lidocaine was used to anesthetize the area. An 18G Arrow arterial line was introduced into the radial artery. The catheter was threaded over the guide wire and the needle was removed with appropriate pulsatile blood return. Blood loss was minimal. The catheter was then sutured in place to the skin and a sterile dressing applied. Perfusion to the extremity distal to the point of catheter insertion was checked and found to be adequate. The patient tolerated procedure well, there were no complications, good waveform was noted, line was flushed, good blood return, wire was sutured in place, sterile dressing was applied. MMODL / IJN: [id number] /
[2018-09-03] MEDS ORDERED: ENOXAPARIN 30 MG/0.3 ML SYRINGE SQ SCH (09:00)
--- NOTE | 2018-09-03 12:27 | WWPN ---
[facility] - PROGRESS NOTE This is an 83-year-old, gentleman consulted in the intensive care unit. The patient has been intubated for placement of urgent dialysis catheter. The patient had history of severe diabetes, hypertension, sepsis, sacral wound. On examination, patient has a chronic renal failure and also patient is on ventilator on Levophed and chest has crackles bilateral with the first and second sounds present. Abdomen is nontender. No peritoneal sign noted. The femorals are 1+ bilateral. PLAN: Placement of the dialysis catheter. MMODL / IJN: [id number] /
--- NOTE | 2018-09-03 15:15 | PCN ---
PROCEDURE NOTE PREOPERATIVE DIAGNOSIS: Acute renal failure. PROCEDURE: Ultrasound-guided dialysis catheter placed in the right femoral vein. The patient is seen in intensive care unit. The right groin was prepped and draped in a sterile manner, 1% lidocaine plain for the groin area. After that, ultrasound guided micropuncture introduced right common femoral vein, micropuncture guidewire was passed and 4-Puerto Rican dilator on the top of the guidewire. After that, we passed a regular guidewire without any resistance and a 4-[place]ican dilator was removed, then we used a dilator and we placed a dialysis catheter on top of the guidewire. Free flow was noted, flushed with heparin saline and hep-locked and catheter was secured with 3-0 nylon dressing applied. Patient tolerated the procedure well. MMODL / IJN: [id number] /
[2018-09-03] MEDS ORDERED: [UNRECOGNIZED DRUG - OTHER] IVPB SCH (21:00)
[2018-09-03] MEDS ORDERED: LEVOFLOXACIN 500 MG IVPB SCH (21:00)
--- NOTE | 2018-09-06 14:46 | CDI ---
Documentation Clarification Form Date: 09/06/2018 2:30:00 PM From: Aaliyah Go RN, CCDS Email: [email or web address] Admit Date: 09/01/2018 11:25:00 PM Patient Name: Mario Jules Visit Number: [id number] Discharge Date: 09/02/2018 11:42:00 PM ATTENTION: The Clinical Documentation Specialists (CDI) and [facility] Coding Staff appreciate your assistance in clarifying documentation. Please respond to the clarification below the line at the bottom and electronically sign. The CDI & [facility] Coding staff will review the response and follow-up if needed. Please note: Queries are made part of the Legal Health Record. If you have any questions, please contact the author of this message via ITS. Dr. Raymond Joseph Patient was admitted with sepsis, septic shock and multi-organ failure. Chronic renal failure was documented by Dr. Razo. History/Risk Factors: Diabetes Mellitus, Hearing Disorder / Deafness, Hyperlipidemia, Hypertension Clinical Indicators: unresponsive, acidotic, hyperkalemic, intubated on the ventilator BUN: 194 CR: 16.02 GFR: 3 Patients Cr back in June 2017 was 2.0 Treatment: IVF, Pressors, monitor labs, hemodialysis catheter placed but never received hemodialysis In order to capture the severity of condition, please clarify if the condition signifies: CKD Stage 1 (GFR > 90) CKD Stage 2 (GFR 60-89) CKD Stage 3 (GFR 30-59) CKD Stage 4 (GFR 15-29) CKD Stage 5 (GFR <15) ESRD Other, please specify ____AKI, CKD3 Unable to determine MTDD
== END 2018-09-02 23:42 | disposition expired | DRG 871 ==
LOC: EC 22:17 → 2SICU 23:25
PROVIDERS: ADMIT Hospitalist; ATTEND Hospitalist
PROC: 5A1945Z Respiratory Ventilation, 24-96 Consecutive Hours (ICD-10-PCS; principal; 2018-09-01)
PROC: 03HY32Z Insertion of Monitoring Device into Upper Artery, Percutaneous Approach (ICD-10-PCS; 2018-09-02)
PROC: 4A133B1 Monitoring of Arterial Pressure, Peripheral, Percutaneous Approach (ICD-10-PCS; 2018-09-02)
PROC: 4A133J1 Monitoring of Arterial Pulse, Peripheral, Percutaneous Approach (ICD-10-PCS; 2018-09-02)
PROC: 06HM33Z Insertion of Infusion Device into Right Femoral Vein, Percutaneous Approach (ICD-10-PCS; 2018-09-02)
DX: A41.9 Sepsis, unspecified organism (principal); N17.0 Acute kidney failure with tubular necrosis; J96.01 Acute respiratory failure with hypoxia; R65.21 Severe sepsis with septic shock; I82.402 Acute embolism and thrombosis of unspecified deep veins of left lower extremity; E87.2 Acidosis; R64 Cachexia; E87.0 Hyperosmolality and hypernatremia; C85.90 Non-Hodgkin lymphoma, unspecified, unspecified site; N13.6 Pyonephrosis; L89.150 Pressure ulcer of sacral region, unstageable; E87.5 Hyperkalemia; E11.22 Type 2 diabetes mellitus with diabetic chronic kidney disease; E86.0 Dehydration; E83.39 Other disorders of phosphorus metabolism; N18.3 Chronic kidney disease, stage 3 (moderate); F03.90 Unspecified dementia, unspecified severity, without behavioral disturbance, psychotic disturbance, mood disturbance, and anxiety; I12.9 Hypertensive chronic kidney disease with stage 1 through stage 4 chronic kidney disease, or unspecified chronic kidney disease; H91.90 Unspecified hearing loss, unspecified ear; E78.5 Hyperlipidemia, unspecified; R74.8 Abnormal levels of other serum enzymes; Z66 Do not resuscitate; Z51.5 Encounter for palliative care; Z68.21 Body mass index [BMI] 21.0-21.9, adult; Z79.02 Long term (current) use of antithrombotics/antiplatelets; Z79.899 Other long term (current) drug therapy; Z79.890 Hormone replacement therapy; Z86.718 Personal history of other venous thrombosis and embolism; Z87.11 Personal history of peptic ulcer disease; Z98.42 Cataract extraction status, left eye; Z98.41 Cataract extraction status, right eye; Z87.891 Personal history of nicotine dependence; Z88.8 Allergy status to other drugs, medicaments and biological substances; Z80.0 Family history of malignant neoplasm of digestive organs; Z82.5 Family history of asthma and other chronic lower respiratory diseases
CPT/HCPCS: 36415; 36600; 71045; 76705; 76770; 80053; 80074; 81001; 82805; 83605; 83690; 83735; 84100; 84132; 84443; 84484; 85025; 85610; 85730; 87040; 87070; 87077; 87086; 87186; 87205; 93005; 93306; 94002; 94640; 96361; 96365; 96366; 96368; 96375; 99291